=== PATIENT | female | born 1985 | race Caucasian/White ===

== ENCOUNTER 2017-06-11 14:39 | Observation (INO) ==
[2017-06-11] MEDS ORDERED: *HR* OxyCODONE Immed Rel 5 MG TABLET PO PRN (18:11)
[2017-06-11] MEDS ORDERED: Acetaminophen 325 MG TABLET PO PRN (18:11)
[2017-06-11] MEDS ORDERED: Naloxone 0.4 MG/ML INJ IVP PRN (18:11)
[2017-06-11] MEDS ORDERED: *HR* HYDROcodone/Acet 5/325 mg TABLET PO PRN (18:11)
[2017-06-11] MEDS ORDERED: *HR* Promethazine 25 MG/ML VIAL IVP PRN (18:26)
[2017-06-11] MEDS: 0.9 % Sodium Chloride 1,000 ML IVC SCH (19:02)
--- NOTE | 2017-06-11 19:29 | Internal Med History&Physical ---
Date of Encounter: 06/11/17 Time of Encounter: 17:30 Assessment and Plan (1) Abdominal pain Current visit: Yes Status: Acute Acute RUQ pain that began yesterday and worsened today. Pt. reports similar sx in September but did not follow up d/t insurance reasons. NPO status. IVP Phenergan 12.5 mg Q6HR for N/V. IVP Protonix 40 mg BID. Stair-step pain medication for pain mgmt. U/S abdomen limited w/focus on RUQ to assess for gallstones. Should consider CT of the abdomen/pelvis if U/S inconclusive or borderline. 0.9 NS IV fluids @ 75 mL/HR. BG checks Q6HR d/t NPO status. Consider surgical consult if warranted. Pt. discussed w/Dr. Shoemaker who is in agreement w/plan of care. Pt. is at moderate risk for further morbidity d/t current RUQ pain, repeated N/V, and hx of similar sx. Observation. Qualifiers: Abdominal location: right upper quadrant Qualified Code(s): R10.11 - Right upper quadrant pain (2) Nausea and vomiting Current visit: Yes Status: Acute Acute nausea and vomiting that began yesterday and continued today. NPO for now. IVP Phenergan 12.5 Q6HR for N/V. IVP Protonix 40 mg BID. Qualifiers: Vomiting type: cyclical vomiting Vomiting Intractability: non-intractable Qualified Code(s): G43.A0 - Cyclical vomiting, not intractable (3) DVT prophylaxis Current visit: Yes Status: Acute Lovenox 40 mg 06:30 for DVT prophylaxis. Monitor pt. for signs of bleeding. Internal Medicine - H&P: HPI Chief complaint: Abdominal/Epigastric pain Admitted From: Intrahospital Transfer Plans for Post Hospital Care: Home History of present illness: Ms. Paez is a 31 year old female with medical hx of lumpectomy on left breast presents from the [facility] ED with chief complaint of abdominal pain in RUQ region accompanied by nausea, vomiting, diarrhea, and bloating since last night. Pt. reports same sx in September and concern was for gallstones. Pt. unable to follow-up d/t insurance reasons. Patient reports multiple episodes of nausea and vomiting last night and today. Patient reports dizziness but denies recent illness, fever, chills, changes in vision, headache, chest pain, shortness of breath, constipation, numbness, tingling, unusual bleeding, lightheadedness, pre-syncope, or syncope. Past Med Surg Social Fam HX - Past Medical History Source: patient, old records reviewed, obtained from family Medical history: no medical history Psychiatric history: no psych history - Past Surgical History Surgical History: other (Lumpectomy of left breast) - Social History Packs per day: 05/17 PPD - Reports quitting 9 years ago Smokeless Tobacco Status: No Alcohol use: none Drug use: none Current living situation: Home Activity Level: Independent ambulation, Very active Recent Out of Country Travel Within the Last 8 Weeks: No Exposure or Possible Exposure to Illness During Travel: No - Family History Grandmother Race: Family Member Ethnicity: Non- Living Status: Hx Family Cancer: Yes (Pancreatic Cancer) Father Race: Family Member Ethnicity: Non- Living Status: Still Living Hx Family Medical Disorders: No Mother Race: Family Member Ethnicity: Non- Living Status: Still Living Hx Family Genitourinary Disorders: Yes (Kidney stones) Brother Race: Family Member Ethnicity: Non- Living Status: Still Living Hx Family Medical Disorders: No Sister Race: Family Member Ethnicity: Non- Living Status: Still Living Hx Family Medical Disorders: No Internal Medicine - H&P: Meds No Known Home Drugs 06/11/17 [History] 3 Allergy/AdvReac Type Severity Reaction Status Date / Time No Known Allergies Allergy Verified 06/11/17 12:35 All Systems PM: A 10-system review of systems was performed and is negative for pertinent findings except as documented above in the HPI. - Constitutional Constitutional: as per HPI, fatigue, weakness, no chills, no fever(s), no night sweats - EENT Eyes: no change in vision, no discharge, no pain, no photophobia Ears: no ear discharge, no ear pain, no tinnitus Nose, mouth and throat: no dysphagia, no nasal discharge, no neck pain, no sore throat - Breasts Breasts: as per HPI - Cardiovascular Cardiovascular ROS IM: no chest pain, no diaphoresis, no dyspnea, no lightheadedness, no palpitations, no syncope - Respiratory Respiratory: no cough, no dyspnea, no wheezing, no excessive phlegm production - Gastrointestinal Gastrointestinal: as per HPI, abdominal pain, diarrhea, nausea, vomiting, no hematemesis, no hematochezia, no melena - Genitourinary Genitourinary: no change in urinary stream, no dysuria, no flank pain, no hematuria Menstruation: as per HPI - Musculoskeletal Musculoskeletal ROS IM: no numbness, no tingling - Integumentary Integumentary IM: no rash, no unusual bruising - Neurological Neurological ROS: no confusion, no convulsions, no focal weakness, no numbness, no tingling, no tremor(s) - Psychiatric Psychiatric: as per HPI - Endocrine Endocrine IM: as per HPI - Hematologic/Lymphatic Hematologic/Lymphatic: no easy bruising - Allergic/Immunologic Allergic/Immunologic: as per HPI - Constitutional Vitals: Temp Pulse Resp BP Pulse Ox 97.7 F 79 14 122/79 100 06/11/17 16:55 06/11/17 16:55 06/11/17 16:55 06/11/17 16:55 06/11/17 16:55 General appearance: Present: cooperative, A&O X 3, pleasant, severe distress ( Epigastric pain), answers questions appropriately - Head Head exam: Present: atraumatic, normocephalic - Eye Eye exam: Present: PERRL, conjuntiva pink, sclera anicteric Pupils: Present: PERRL - ENT ENT exam: Present: normal exam - Neck Neck exam general surgery: Present: normal inspection, supple, trachea midline. Absent: lymphadenopathy - Respiratory Respiratory exam: Present: CTAB. Absent: accessory muscle use, rales, rhonchi, wheezes - Cardiovascular Cardiovascular exam: Present: RRR, +S1, +S2. Absent: diastolic murmur, gallop, rubs, systolic murmur - GI/Abdominal GI/Abdominal exam: Present: guarding, normal bowel sounds, soft, tenderness, no peritoneal signs. Absent: distended - Rectal Rectal exam: Present: deferred - Additional comments: exam deferred. - Extremities Exam Extremities exam: Present: warm, radial pulses palpable and symmetrical. Absent : calf tenderness, cyanotic, pedal edema - Back Exam Back exam: Present: normal inspection - Neurological Exam Neurological exam: Present: CN II-XII intact, oriented X3, no focal deficits. Absent: pronater drift, facial droop, speech deficit - Psychiatric Psychiatric exam: Present: normal affect, normal mood - Skin Skin exam: Present: dry, intact Internal Med - H&P Results - EKG Data EKG shows normal: sinus rhythm - EKG Data Prior EKG available for review: yes EKG comments: 06/11/17 20:02 EKG dated 06/11/17 18:22 shows sinus rhythm with incomplete right bundle branch block. EKG dated 06/11/17 18:23 shows sinus rhythm with marked sinus arrhythmia and possible right ventricular conduction delay.
--- NOTE | 2017-06-11 21:08 | Event Note ---
Date of Encounter: 06/11/17 Time of Encounter: 18:00 Discussed with FREDA and agree with assessment and plan Patient reports of a two-year history of intermittent right upper quadrant/ epigastric pain mainly after eating fatty foods. On labs, lipase within normal limits as well as LFTs except for direct/total bilirubin which was slightly elevated. Will order right upper quadrant ultrasound and await results for any further medical management.
[2017-06-12 05:41] LABS: Basophils % 0.1 %; Eosinophils % 0.4 %; Hematocrit 32.2 % (35.3-44.9); Hemoglobin 10.4 g/dL (11.5-15.4); Immature Granulocytes % 0.4 % (0-4); Lymphocytes # 1.4 K/mcL (0.6-4.6); Lymphocytes % 16.5 %; Mean Corpuscular HGB Conc 32.3 g/dL (31.6-35.5); Mean Corpuscular Hemoglobin 28.6 pg (28.0-33.3); Mean Corpuscular Volume 88.5 fL (83.0-100.0); Mean Platelet Volume 10.5 fL (9.4-12.4); Monocytes # 0.6 K/mcL (0.0-1.3); Monocytes % 6.8 %; Neutrophils # 6.5 K/mcL (1.6-8.9); Platelet Count 258 K/mcL (140-400); Red Blood Count 3.64 M/mcL (3.82-4.97); Red Cell Distribution Width 13.2 % (11.5-14.5); Segmented Neutrophils % 75.8 %
[2017-06-12] MEDS: Pantoprazole 40 MG VIAL IVP SCH ×2 (05:58→16:44)
[2017-06-12] MEDS: *HR* Enoxaparin 40 MG/0.4 ML SYRINGE SQ SCH (05:58)
[2017-06-12 06:00] LABS: Alanine Aminotransferase 6 Units/L (7-52); Albumin 3.3 g/dL (3.5-5.7); Albumin/Globulin Ratio 1.4 (1.1-2.2); Alkaline Phosphatase 51 Units/L (34-104); Aspartate Amino Transferase 11 Units/L (13-39); BUN/Creatinine Ratio 16 (6-26); Bilirubin,Total 1.6 mg/dL (0.3-1.0); Blood Urea Nitrogen 9 mg/dL (6-20); Calcium 7.7 mg/dL (8.6-10.3); Carbon Dioxide 23 mEq/L (23-29); Chloride 111 mEq/L (98-107); Chol/HDL Ratio 2.5 (0-4.9); Cholesterol 93 mg/dL (< 200); Globulin 2.3 g/dL (2.4-3.5); Glucose 82 mg/dL (70-105); HDL Cholesterol 37 mg/dL (40-59); LDL Cholesterol,Calculated 40 mg/dL (0-99); Magnesium 2.1 mg/dL (1.6-2.6); Osmolality,Calculated 284 (280-300); Potassium 3.3 mEq/L (3.5-5.1); Sodium 138 mEq/L (136-145); Total Protein 5.6 g/dL (6.4-8.9); Triglycerides 78 mg/dL (< 150); eGFR For African Americans > 60 (> 60); eGFR For Non-African Americans > 60 (> 60)
[2017-06-12] MEDS: 0.9 % Sodium Chloride 1,000 ML IVC SCH ×3 (09:11→20:00)
[2017-06-12] MEDS: MetroNIDAZOLE 500 MG/100 ML 500 MG/100 ML BAG IVPB SCH ×3 (14:06→23:03)
--- NOTE | 2017-06-12 14:21 | Internal Med Progress Note ---
Date of Encounter: 06/12/17 Time of Encounter: 13:15 - Assessment and plan (1) Enteritis Current Visit: Yes Status: Acute Assessment and plan: CT abd/pelvis concerning for acute enteritis will start IV cipro and flagyl IV fluids clear liquid diet anti-emetics as needed (2) DVT prophylaxis Current Visit: Yes Status: Acute Assessment and plan: Lovenox SQ (3) Nausea and vomiting Current Visit: Yes Status: Resolved Assessment and plan: resolved at this itme will use anti-emetics as needed Qualifiers: Vomiting type: cyclical vomiting Vomiting Intractability: non-intractable Qualified Code(s): G43.A0 - Cyclical vomiting, not intractable - Subjective Interval history: Patient seen and examined at bedside. Resting in bed and reports of improvement of her abd pain compared to previous day. Right Abd US negative for any cholelithiasis CT abd/pelvis concerning for enteritis. - Constitutional Vitals: Temp Pulse Resp BP Pulse Ox 98.5 F 73 18 100/63 99 06/12/17 12:23 06/12/17 12:23 06/12/17 12:23 06/12/17 12:23 06/12/17 12:23 General appearance: Present: cooperative, A&O X 3, pleasant, no acute distress, answers questions appropriately - Head Head exam: Present: atraumatic, normocephalic - Eye Eye exam: Present: conjuntiva pink, sclera anicteric - Respiratory Respiratory exam: Present: CTAB. Absent: accessory muscle use, rales, rhonchi, wheezes - Cardiovascular Cardiovascular exam: Present: RRR, +S1, +S2. Absent: diastolic murmur, gallop, rubs, systolic murmur - GI/Abdominal GI/Abdominal exam: Present: normal bowel sounds, soft, no peritoneal signs. Absent: distended, tenderness - Extremities Exam Extremities exam: Present: warm, radial pulses palpable and symmetrical. Absent : calf tenderness, cyanotic, pedal edema - Neurological Exam Neurological exam: Present: alert, oriented X3 - Psychiatric Psychiatric exam: Present: normal affect, normal mood Internal Medicine: Result - Labs CBC & Chem 7: 06/12/17 04:56 06/12/17 04:56 Labs: Short CBC 06/12/17 Range/Units 04:56 WBC 8.6 (4.3-11.1) K/mcL Hgb 10.4 L D (11.5-15.4) g/dL Hct 32.2 L (35.3-44.9) % Plt Count 258 (140-400) K/mcL Neutrophils # 6.5 (1.6-8.9) K/mcL BMP 06/12/17 04:56 Sodium 138 Potassium 3.3 L Chloride 111 H Carbon Dioxide 23 BUN 9 Creatinine 0.57 L Glucose 82 Calcium 7.7 L Liver Function 06/12/17 Range/Units 04:56 Total Bilirubin 1.6 H (0.3-1.0) mg/dL AST 11 L (13-39) Units/L ALT 6 L (7-52) Units/L Alkaline Phosphatase 51 (34-104) Units/L Albumin 3.3 L (3.5-5.7) g/dL - Impressions Impressions Abdomen Ultrasound 06/11/17 18:22 IMPRESSION: Trace perihepatic ascites, nonspecific. Unremarkable appearance of the gallbladder with no evidence of cholelithiasis. D/ / Franky Burns MD / Franky Burns MD Interpreting Provider: Franky Burns MD Abdomen CT 06/12/17 08:53 IMPRESSION: 1. Inflammatory changes involving multiple fluid-filled thick-walled loops of distal jejunum and proximal ileum in the lower abdomen extending into the pelvis. The pelvis was not imaged on this abdominal CT. Findings likely represent an acute enteritis. 2. Small amount of nonspecific perihepatic ascites is likely related to the bowel inflammatory process. 3. No CT changes of acute cholecystitis. No acute abnormality in the solid organs. D/ / 06/12/2017 10:01:11 Roel Vidales MD / bcarter Interpreting Provider: Roel Vidales MD Consult Discharge Plan - Plan Referrals: NONE,PCP [Primary Care Provider] -
[2017-06-13] MEDS: 0.9 % Sodium Chloride 1,000 ML IVC SCH (04:56)
[2017-06-13] MEDS: Pantoprazole 40 MG VIAL IVP SCH ×2 (04:59→17:08)
[2017-06-13] MEDS: *HR* Enoxaparin 40 MG/0.4 ML SYRINGE SQ SCH (05:01)
[2017-06-13 06:14] LABS: Basophils % 0.2 %; Eosinophils % 0.7 %; Immature Granulocytes % 0.2 % (0-4); Lymphocytes # 1.3 K/mcL (0.6-4.6); Lymphocytes % 31.6 %; Mean Corpuscular HGB Conc 32.3 g/dL (31.6-35.5); Mean Corpuscular Hemoglobin 28.3 pg (28.0-33.3); Mean Corpuscular Volume 87.8 fL (83.0-100.0); Mean Platelet Volume 10.5 fL (9.4-12.4); Monocytes # 0.4 K/mcL (0.0-1.3); Monocytes % 8.7 %; Neutrophils # 2.4 K/mcL (1.6-8.9); Platelet Count 185 K/mcL (140-400); Red Blood Count 3.53 M/mcL (3.82-4.97); Red Cell Distribution Width 13.2 % (11.5-14.5); Segmented Neutrophils % 58.6 %
[2017-06-13 06:34] LABS: Alanine Aminotransferase 6 Units/L (7-52); Albumin 3.2 g/dL (3.5-5.7); Albumin/Globulin Ratio 1.4 (1.1-2.2); Alkaline Phosphatase 45 Units/L (34-104); Aspartate Amino Transferase 9 Units/L (13-39); BUN/Creatinine Ratio 12 (6-26); Bilirubin,Total 0.9 mg/dL (0.3-1.0); Blood Urea Nitrogen 6 mg/dL (6-20); Calcium 7.7 mg/dL (8.6-10.3); Carbon Dioxide 23 mEq/L (23-29); Chloride 110 mEq/L (98-107); Globulin 2.3 g/dL (2.4-3.5); Glucose 87 mg/dL (70-105); Osmolality,Calculated 283 (280-300); Phosphorous 2.1 mg/dL (2.7-4.5); Potassium 3.4 mEq/L (3.5-5.1); Sodium 138 mEq/L (136-145); Total Protein 5.5 g/dL (6.4-8.9); eGFR For African Americans > 60 (> 60); eGFR For Non-African Americans > 60 (> 60)
[2017-06-13] MEDS: MetroNIDAZOLE 500 MG/100 ML 500 MG/100 ML BAG IVPB SCH ×2 (08:08→15:08)
[2017-06-13] MEDS ORDERED: 0.9 % Sodium Chloride 1,000 ML IVC SCH (11:55)
--- NOTE | 2017-06-13 11:56 | Internal Med Progress Note ---
Date of Encounter: 06/13/17 Time of Encounter: 10:16 - Assessment and plan (1) Enteritis Current Visit: Yes Status: Acute Assessment and plan: CT abd/pelvis concerning for acute enteritis will start IV cipro and flagyl IV fluids clear liquid diet, advance as tolerated anti-emetics as needed (2) DVT prophylaxis Current Visit: Yes Status: Acute Assessment and plan: Lovenox SQ (3) Nausea and vomiting Current Visit: Yes Status: Resolved Assessment and plan: resolved at this itme will use anti-emetics as needed Qualifiers: Vomiting type: cyclical vomiting Vomiting Intractability: non-intractable Qualified Code(s): G43.A0 - Cyclical vomiting, not intractable - Subjective Interval history: Patient seen and examined at bedside. Resting in bed and reports of resolution of abd pain. improvement in diarrhea, had a formed bowel movement this morning. tolerating clear liquid diet well. CT abd/pelvis concerning for enteritis. - Constitutional Vitals: Temp Pulse Resp BP Pulse Ox 97.8 F 57 15 109/69 98 06/13/17 06:36 06/13/17 06:36 06/13/17 06:36 06/13/17 06:36 06/13/17 06:36 General appearance: Present: cooperative, A&O X 3, pleasant, no acute distress, answers questions appropriately - Head Head exam: Present: atraumatic, normocephalic - Respiratory Respiratory exam: Present: CTAB. Absent: accessory muscle use, rales, rhonchi, wheezes - Cardiovascular Cardiovascular exam: Present: RRR, +S1, +S2. Absent: diastolic murmur, gallop, rubs, systolic murmur - GI/Abdominal GI/Abdominal exam: Present: normal bowel sounds, soft, no peritoneal signs. Absent: distended, tenderness - Extremities Exam Extremities exam: Present: warm, radial pulses palpable and symmetrical. Absent : calf tenderness, pedal edema - Neurological Exam Neurological exam: Present: alert, oriented X3 - Psychiatric Psychiatric exam: Present: normal affect, normal mood Internal Medicine: Result - Labs CBC & Chem 7: 06/13/17 05:58 06/13/17 05:58 Labs: Short CBC 06/13/17 Range/Units 05:58 WBC 4.1 L D (4.3-11.1) K/mcL Hgb 10.0 L (11.5-15.4) g/dL Hct 31.0 L (35.3-44.9) % Plt Count 185 (140-400) K/mcL Neutrophils # 2.4 (1.6-8.9) K/mcL BMP 06/13/17 05:58 Sodium 138 Potassium 3.4 L Chloride 110 H Carbon Dioxide 23 BUN 6 Creatinine 0.52 L Glucose 87 Calcium 7.7 L Liver Function 06/13/17 Range/Units 05:58 Total Bilirubin 0.9 (0.3-1.0) mg/dL AST 9 L (13-39) Units/L ALT 6 L (7-52) Units/L Alkaline Phosphatase 45 (34-104) Units/L Albumin 3.2 L (3.5-5.7) g/dL Consult Discharge Plan - Plan Referrals: NONE,PCP [Primary Care Provider] -
[2017-06-14] MEDS: MetroNIDAZOLE 500 MG/100 ML 500 MG/100 ML BAG IVPB SCH (00:18)
[2017-06-14] MEDS: 0.9 % Sodium Chloride 1,000 ML IVC SCH (01:32)
[2017-06-14] MEDS: Pantoprazole 40 MG VIAL IVP SCH (04:54)
[2017-06-14] MEDS: *HR* Enoxaparin 40 MG/0.4 ML SYRINGE SQ SCH (05:04)
[2017-06-14 06:04] LABS: Basophils % 0.2 %; Eosinophils # 0.1 K/mcL (0.0-0.6); Hematocrit 33.1 % (35.3-44.9); Hemoglobin 10.8 g/dL (11.5-15.4); Immature Granulocytes % 0.4 % (0-4); Lymphocytes # 1.2 K/mcL (0.6-4.6); Lymphocytes % 23.6 %; Mean Corpuscular HGB Conc 32.6 g/dL (31.6-35.5); Mean Corpuscular Hemoglobin 28.3 pg (28.0-33.3); Mean Corpuscular Volume 86.6 fL (83.0-100.0); Mean Platelet Volume 10.7 fL (9.4-12.4); Monocytes # 0.4 K/mcL (0.0-1.3); Monocytes % 7.5 %; Neutrophils # 3.3 K/mcL (1.6-8.9); Platelet Count 242 K/mcL (140-400); Red Blood Count 3.82 M/mcL (3.82-4.97); Red Cell Distribution Width 13.1 % (11.5-14.5); Segmented Neutrophils % 67.3 %
[2017-06-14 06:47] LABS: Alanine Aminotransferase 8 Units/L (7-52); Albumin 3.8 g/dL (3.5-5.7); Albumin/Globulin Ratio 1.5 (1.1-2.2); Alkaline Phosphatase 52 Units/L (34-104); Aspartate Amino Transferase 13 Units/L (13-39); BUN/Creatinine Ratio 10 (6-26); Bilirubin,Total 0.8 mg/dL (0.3-1.0); Blood Urea Nitrogen 7 mg/dL (6-20); Calcium 8.5 mg/dL (8.6-10.3); Carbon Dioxide 26 mEq/L (23-29); Chloride 106 mEq/L (98-107); Globulin 2.5 g/dL (2.4-3.5); Glucose 107 mg/dL (70-105); Osmolality,Calculated 284 (280-300); Potassium 3.1 mEq/L (3.5-5.1); Sodium 138 mEq/L (136-145); Total Protein 6.3 g/dL (6.4-8.9); eGFR For African Americans > 60 (> 60); eGFR For Non-African Americans > 60 (> 60)
[2017-06-14 06:49] LABS: Phosphorous 3.3 mg/dL (2.7-4.5)
[2017-06-14] MEDS ORDERED: metroNIDAZOLE 500 MG TABLET PO SCH (09:00)
[2017-06-14 10:48] VITALS: BP 96/59
--- NOTE | 2017-06-14 13:43 | Discharge Summary ---
Date of Encounter: 06/14/17 Time of Encounter: 13:15 - Discharge Diagnosis (1) Enteritis Priority: Primary Status: Acute (2) DVT prophylaxis Priority: Secondary Status: Acute (3) Nausea and vomiting Priority: Primary Status: Resolved Qualifiers: Vomiting type: cyclical vomiting Vomiting Intractability: non-intractable Qualified Code(s): G43.A0 - Cyclical vomiting, not intractable - Discharge Medications Prescriptions: Ciprofloxacin [Cipro] 500 mg PO BID #9 tablet Lactobacillus Acidophilus [Acidophilus Lactobacilli] 1 each PO BID #9 capsule metroNIDAZOLE [Flagyl] 500 mg PO TID #14 tablet Home Medications: Ciprofloxacin [Cipro] 500 mg PO BID #9 tablet 06/14/17 [Rx] Lactobacillus Acidophilus [Acidophilus Lactobacilli] 1 each PO BID #9 capsule [Rx] metroNIDAZOLE [Flagyl] 500 mg PO TID #14 tablet 06/14/17 [Rx] Allergies/Adverse Reactions: 3 Allergy/AdvReac Type Severity Reaction Status Date / Time No Known Allergies Allergy Verified 06/11/17 12:35 Procedures/tests Complete & Pending: Procedures Performed prior 72 hours Category Date Time Status CT abdomen w iv no oral [CT] Stat Cat Scan 06/12/17 08:53 Draft US abdomen limited [US] Stat Exams 06/11/17 18:22 Completed EKG [ECG 12 lead ECG] [ECG] Stat Y 06/11/17 18:25 Completed Date of admission: 06/11/17 16:39 Primary care physician: PCP NONE Consults: 06/11/17 18:13 Consult to Heating And Cooling Technician [CONS] Routine Reason for SW Consult: Patient had similar sx in September and could not follow up d/t insurance reasons. Please assess patient for needs for post-discharge planning Discharging clinician: Tara Cunha Anticipated date of discharge: 06/14/17 - Patient Status Disposition: Home, Self-Care Condition: Good Functional capacity at discharge: independent ambulation Overall status at discharge: patient is back to baseline - Discharge Instructions Follow Up With: Roshan Tanner CNP [Non-Partnered Physician] - 06/22/17 3:00 pm (You will receive a new packet in the mail. If you do not, please arrive to your appt. 1/ 2 hour early to fill it out in the office. Please bring your photo ID, insurance card and any medications you are on. If you need to cancel, please give a 24 hour notice. Thank you) Additional Instructions: Please follow up with your primary care physician within one week after your discharge from the hospital. Please continue oral antibiotics as prescribed along with the probiotic - Diet and Activity Activity: resume usual activities as tolerated Diet: advance to your usual diet Hospital course: Ms. Paez is a 31 year old female with no medical history admitted for abdominal pain, nausea, vomiting secondary to enteritis. She was started on empiric abx, IV Fluids, and was initially made NPO. Her diet was slowly started with clear liquid diet and advanced as tolerated. She responded well to therapy with complete resolution of her abd pain. She is medically stable at this time and tolerating regular diet well. She will be discharged to home with follow up with PCP. - Time Spent with Patient Total time spent providing and/or coordinating discharge services: Less than 30 minutes - Constitutional Vitals: Temp Pulse Resp BP Pulse Ox 98.1 F 68 18 96/59 98 06/14/17 10:45 06/14/17 10:45 06/14/17 10:45 06/14/17 10:45 06/14/17 10:45 General appearance: Present: cooperative, A&O X 3, pleasant, no acute distress, answers questions appropriately - Head Head exam: Present: atraumatic, normocephalic - Eye Eye exam: Present: normal appearance, conjuntiva pink, sclera anicteric - Respiratory Respiratory exam: Present: CTAB. Absent: accessory muscle use, rales, rhonchi, wheezes - Cardiovascular Cardiovascular exam: Present: RRR, +S1, +S2. Absent: diastolic murmur, gallop, rubs, systolic murmur - GI/Abdominal GI/Abdominal exam: Present: normal bowel sounds, soft, no peritoneal signs. Absent: distended, tenderness - Extremities Exam Extremities exam: Present: warm, radial pulses palpable and symmetrical. Absent : calf tenderness, pedal edema - Neurological Exam Neurological exam: Present: alert, oriented X3 - Psychiatric Psychiatric exam: Present: normal affect, normal mood
--- NOTE | 2017-06-15 18:32 | Electrocardiograph Report ---
[place] [id number] Test Date: 2017-06-11 Pat Name: Kimberly Paez Department: 115 Room: 3A41 Gender: F Hog Ringer: YUNG : 1985 Requested By: Uriah Sanon Order Number: [id number] Reading MD: Abelardo Almanza MD Measurements Intervals [place] Rate: 62 P: 50 WY: 149 QRS: 67 QRSD: 97 T: 66 QT: 426 QTc: 432 Interpretive Statements SINUS RHYTHM WITH MARKED SINUS ARRHYTHMIA Electronically Signed On 06-15-2017 18:30:12 EST by Abelardo Almanza MD
== END 2017-06-14 14:42 | disposition home or self-care (01) ==
LOC: 3ANU → SUATTDRO 16:39
PROVIDERS: ADMIT Hospitalist; ATTEND Internal Medicine

== ENCOUNTER 2017-09-04 22:55 | Inpatient (IN) ==
[2017-09-05] MEDS ORDERED: Ondansetron 4 MG/2 ML VIAL IVP PRN (01:44)
[2017-09-05] MEDS ORDERED: *HR* OxyCODONE/APAP 10/325 TABLET PO PRN ×2 (01:45→15:03)
[2017-09-05] MEDS: 0.9 % Sodium Chloride 1,000 ML IVC SCH ×2 (02:05→16:48)
[2017-09-05 06:34] LABS: Basophils % 0.3 %; Eosinophils % 0.1 %; Hemoglobin 11.8 g/dL (11.5-15.4); Immature Granulocytes % 0.5 % (0-4); Lymphocytes # 1.3 K/mcL (0.6-4.6); Lymphocytes % 12.7 %; Mean Corpuscular HGB Conc 33.7 g/dL (31.6-35.5); Mean Corpuscular Hemoglobin 29.1 pg (28.0-33.3); Mean Corpuscular Volume 86.2 fL (83.0-100.0); Mean Platelet Volume 11.2 fL (9.4-12.4); Monocytes # 0.7 K/mcL (0.0-1.3); Monocytes % 6.5 %; Neutrophils # 8.2 K/mcL (1.6-8.9); Platelet Count 255 K/mcL (140-400); Red Blood Count 4.06 M/mcL (3.82-4.97); Red Cell Distribution Width 13.2 % (11.5-14.5); Segmented Neutrophils % 79.9 %
[2017-09-05 06:43] LABS: BUN/Creatinine Ratio 24 (6-26); Blood Urea Nitrogen 14 mg/dL (6-20); Calcium 8.4 mg/dL (8.6-10.3); Carbon Dioxide 22 mEq/L (23-29); Chloride 111 mEq/L (98-107); Glucose 101 mg/dL (70-105); Osmolality,Calculated 295 (280-300); Sodium 142 mEq/L (136-145); eGFR For African Americans > 60 (> 60); eGFR For Non-African Americans > 60 (> 60)
--- NOTE | 2017-09-05 08:29 | General Surg History&Physical ---
Date of Encounter: 09/05/17 Time of Encounter: 08:10 History of Present Illness Chief complaint: Nausea and vomiting HPI: Ms. Paez is a 31 year old female Who has been symptomatic for almost a year. She has intermittent crampy abdominal pain associated with nausea and vomiting. She was admitted to the hospital one occasion to rule out gastroenteritis. She has upper and lower endoscopy planned for . She presented today to the emergency room with nausea and vomiting and crampy abdominal pain. CAT scan demonstrates distal small bowel obstruction. This is likely a high-grade partial bowel obstruction with dilated proximal small bowel at about a 4-1 ratio to distal small bowel. This is in the distal ileum and likely represents adhesive band or Meckel's diverticulum. I have recommended laparotomy with possible small bowel obstruction. The patient is in complete agreement and wishes to proceed later today. Past Med Surg Social Fam HX - Past Medical History Medical history: other Psychiatric history: no psych history - Past Surgical History Surgical History: other (Lumpectomy of left breast) - Social History Smoking Status: Never smoker Smokeless Tobacco Status: No Alcohol use: none Drug use: none - Family History Grandmother History Unknown: Yes Adopted: No Family Member Ethnicity: Non- Living Status: Hx Family Cancer: Yes (pancreatic) Father Family Member Ethnicity: Non- Living Status: Still Living Mother Family Member Ethnicity: Non- Living Status: Still Living Brother Family Member Ethnicity: Non- Living Status: Still Living Sister Family Member Ethnicity: Non- Living Status: Still Living Medications and Allergies No Known Home Drugs 09/05/17 [History] 3 Allergy/AdvReac Type Severity Reaction Status Date / Time No Known Allergies Allergy Verified 09/04/17 20:35 Review of Systems All systems PM: The remainder of the systems were reviewed and are negative General Surgery Exam Initial Vital Signs Temp Pulse Resp BP Pulse Ox 98.3 F 83 16 97/58 100 09/05/17 00:52 09/05/17 00:52 09/05/17 00:52 09/05/17 00:52 09/05/17 00:52 - General physical appearance well developed, well nourished, no distress - ENT normal pinna, normal nares, normal mucosa, no hearing loss, no congestion - Neck no masses, no bruits, trachea midline, no lymphadectomy, no venous distension - Respiratory normal expansion, normal respiratory effort, clear to percussion, clear to auscultation - Cardiovascular Cardiovascular exam: Present: RRR, no murmurs/rubs/gallops - Abdomen Abdomen general surgery: Present: bowel sounds present, tender Abdominal Tenderness: Present: diffusely (No guarding or rebound. Bowel sounds are hypoactive) - Integumentary Integumentary general surgery: Present: warm and dry, no abnormal pigmentation - Neurologic Present: CN 2-12 grossly intact, normal coordination, normal sensation - Psychiatric Psychiatric general surgery: Present: appropriate, oriented to person, oriented to place, oriented to time, speech is normal, memory intact Results - Labs 09/05/17 05:51 09/05/17 05:51 Abnormal lab results Hct 35.0 % (35.3-44.9) L 09/05/17 05:51 Chloride 111 mEq/L (98-107) H 09/05/17 05:51 Carbon Dioxide 22 mEq/L (23-29) L 09/05/17 05:51 Creatinine 0.59 mg/dL (0.60-1.20) L 09/05/17 05:51 Calcium 8.4 mg/dL (8.6-10.3) L 09/05/17 05:51 Diabetes panel 09/05/17 Range/Units 05:51 Sodium 142 (136-145) mEq/L Potassium 4.0 D (3.5-5.1) mEq/L Chloride 111 H (98-107) mEq/L Carbon Dioxide 22 L (23-29) mEq/L BUN 14 (6-20) mg/dL Creatinine 0.59 L (0.60-1.20) mg/dL Glucose 101 (70-105) mg/dL Calcium 8.4 L (8.6-10.3) mg/dL Calcium panel 09/05/17 Range/Units 05:51 Calcium 8.4 L (8.6-10.3) mg/dL Pituitary panel 09/05/17 Range/Units 05:51 Sodium 142 (136-145) mEq/L Potassium 4.0 D (3.5-5.1) mEq/L Chloride 111 H (98-107) mEq/L Carbon Dioxide 22 L (23-29) mEq/L BUN 14 (6-20) mg/dL Creatinine 0.59 L (0.60-1.20) mg/dL Glucose 101 (70-105) mg/dL Calcium 8.4 L (8.6-10.3) mg/dL Adrenal panel 09/05/17 Range/Units 05:51 Sodium 142 (136-145) mEq/L Potassium 4.0 D (3.5-5.1) mEq/L Chloride 111 H (98-107) mEq/L Carbon Dioxide 22 L (23-29) mEq/L BUN 14 (6-20) mg/dL Creatinine 0.59 L (0.60-1.20) mg/dL Glucose 101 (70-105) mg/dL Calcium 8.4 L (8.6-10.3) mg/dL All other labs normal.
[2017-09-05] MEDS ORDERED: *HR* Propofol 200 MG/20 ML VIAL IVP ONE (11:04)
[2017-09-05] MEDS ORDERED: Lidocaine -MPF 2% 2 ML VIAL ONE (11:04)
[2017-09-05] MEDS ORDERED: *HR* Midazolam HCl 2 MG/2 ML VIAL ONE (11:04)
[2017-09-05] MEDS ORDERED: *HR* Rocuronium Bromide 50 MG/5 ML VIAL ONE (11:04)
[2017-09-05] MEDS ORDERED: *HR* FentaNYL (PF) 100 MCG/2 ML VIAL ONE ×2 (11:04→12:26)
--- NOTE | 2017-09-05 11:12 | Anesthesia Evaluation PreOp ---
Date of Encounter: 09/05/17 Time of Encounter: 11:10 - Past History Planned Operation: Exploratory Laparotomy Cardiac History: Denies any Significant Hx Pulmonary History: Denies Any Significant HX SEPTIC PUMP TRUCK DRIVER History: Denies Any Significant HX Other Medical History: Denies Any Significant HX Anesthesia History: No Prior Anesthetic Complications, Past Anesthesia Test: Negative (09/05/2017) Alcohol Use: none Drug use: none Medications and Allergies No Known Home Drugs 09/05/17 [History] 3 Allergy/AdvReac Type Severity Reaction Status Date / Time No Known Allergies Allergy Verified 09/04/17 20:35 - Meds/Allergy Pre-op Review Medications Reviewed: Yes Allergies Reviewed: Yes Beta Blockers on Current Med List: No Anesthesia Results - Labs 09/05/17 05:51 09/05/17 05:51 - Imaging EKG: report reviewed (06/11/2017 SINUS RHYTHM WITH MARKED SINUS ARRHYTHMIA) Anesthesia Exam Vital Signs/O2 Sat, Most Current Temp Pulse Resp BP Pulse Ox 98.2 F 57 13 97/60 98 09/05/17 07:08 09/05/17 07:08 09/05/17 07:08 09/05/17 07:08 09/05/17 08:15 Height: 5'4''/1.63m Weight: 147 lbs/62.4 kg NPO (# of Hours): 8 Pain Scale: 0 Pain Scale Used: Numeric (1 - 10) - HEENT Pupil (Motor): EOMI Mallampati: II Teeth: Normal Oral Opening: Greater than 3 - SEPTIC PUMP TRUCK DRIVER LOC: Oriented SEPTIC PUMP TRUCK DRIVER Motor: Normal RUE, Normal LUE, Normal RLE, Normal LLE, Normal Face SEPTIC PUMP TRUCK DRIVER Sensory: Normal: RUE, LUE, RLE, LLE, Face - Cardiac Rhythm: Regular Murmur: None - Pulmonary Breath Sounds: bilateral Clear Respiratory Effort: Symmetrical Anesthesia Assess/Plan ASA Score: 1 Modified Geneva Scale for Level of Consciousness: Cooperative, oriented, and tranquil Anesthetic Plan: General Monitoring Plan: Standard Monitors Recovery Plan: PACU
[2017-09-05] MEDS ORDERED: *HR* OxyCODONE Immed Rel 5 MG TABLET PO PRN (11:20)
[2017-09-05] MEDS ORDERED: *HR* Promethazine 25 MG/ML VIAL IVP PRN (11:20)
[2017-09-05] MEDS ORDERED: Acetaminophen IV 1,000 MG/100 ML INFUS..BTL ONE (11:25)
[2017-09-05] MEDS ORDERED: CefOXitin 2,000 MG VIAL ONE (11:26)
[2017-09-05] MEDS ORDERED: *HR* Succinylcholine 200 MG/10 ML VIAL IVP ONE (11:54)
[2017-09-05] MEDS ORDERED: Lidocaine -MPF 4% 5 ML AMPUL ONE (11:55)
[2017-09-05] MEDS ORDERED: Ondansetron 4 MG/2 ML VIAL ONE (12:18)
[2017-09-05] MEDS ORDERED: Dexamethasone 4 MG/ML VIAL ONE (12:18)
[2017-09-05] MEDS ORDERED: Ketorolac 30 MG/ML VIAL ONE (13:35)
[2017-09-05] MEDS ORDERED: Neostigmine Methylsulfate 3 MG/3 ML SYRINGE ONE (13:37)
[2017-09-05] MEDS ORDERED: *HR* HYDROmorphone 20 MG/20 ML PCA IVC PRN (13:49)
--- NOTE | 2017-09-05 13:54 | Operative Note ---
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 Timeout was taken and the patient was identified. The abdomen was prepped and draped in sterile fashion utilizing ChloraPrep standard draping techniques. I made a vertical midline incision below the umbilicus and the abdomen. It was immediately apparent that there was no inflammatory process involving the small bowel about 25-30 cm proximal to the ileocecal valve. The inflammatory process involved the pelvis and sigmoid colon. I enlarged the midline incision and placed a Bookwalter retractor. The patient had a right ovarian cyst that was retracted out of the way and during retraction the cyst ruptured. I did not take any further action with the cyst. The inflammatory adhesions were combination of acute and chronic adhesions densely adherent to the sacral promontory and sigmoid colon. As I dissected through this area it became obvious that the small bowel and colon were fused. As I took down this adhesion the opening in the sigmoid colon was perhaps 3 cm circular. The small bowel was no longer continuous about 20 cm proximal to the ileocecal valve. 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 There is no pus in this area the colon was unprepped, however, the field was clean. I decided to do a sigmoid colectomy with primary anastomosis as well as ileocecectomy area I divided the small bowel proximal to the area of maximum inflammation and disruption of the small bowel I divided the right colon just above the cecum. I divided the mesentery with clamps and hemostatic ligatures. I then turned my attention to the sigmoid colon resection. The sigmoid colon was completely mobilized as was the rectum. The fistula had occurred at the level of the pelvic brim at the junction between the sigmoid colon and the rectum. I mobilize the rectum distally area I placed a right angle bowel clamp on the rectum and divided the rectum about 3-4 cm distal to the fistula. I divided the mid sigmoid colon using a bowel clamp above this area. I divided the mesentery of the distal sigmoid colon and proximal rectum and the specimen was removed. I performed a 2 layer handsewn anastomosis with 2-0 silk seromuscular stitches and running 3-0 catgut mucosal stitch. This gave an excellent technical result that was watertight and airtight. I then turned my attention to the small bowel and cecum. I performed a functional end-to-end anastomosis with VICENTA stapler and closed the resulting enterotomy with a TA 60. I circumferentially reinforced the anastomosis with interrupted silk stitches. The mesentery was closed with interrupted silk stitches. She tolerated the procedure very well. The differential diagnosis includes endometriosis, Crohn' s disease, or ruptured Meckel's diverticulum. There is no evidence of sigmoid diverticulosis. The abdomen was irrigated with copious amounts of Mefoxin containing solution. Midline was closed with looped 0 PDS in the skin was closed with interrupted 2-0 Vicryl and skin clips. Nasogastric tube was placed prior to closure and placement in the stomach was confirmed.
[2017-09-05] MEDS: *HR* FentaNYL (PF) 100 MCG/2 ML VIAL IVP PRN ×2 (14:18→14:32)
[2017-09-05] MEDS: *HR* HYDROmorphone 20 MG/20 ML PCA IVC PRN (15:12)
--- NOTE | 2017-09-05 16:40 | Anesthesia Evaluation Post Op ---
Date of Encounter: 09/05/17 Time of Encounter: 16:39 - Vital Signs Vital Signs: Vital Signs/O2 Sat, Most Current Temp Pulse Resp BP Pulse Ox 97.2 F L 105 20 119/80 100 09/05/17 14:41 09/05/17 14:51 09/05/17 14:51 09/05/17 14:51 09/05/17 15:30 - Lungs Lungs: Clear Ascult./Percussion - Airway Airway: Non-obstructed - Cardiovascular Regular Rate - Mental Status Mental Status: Asleep with brisk response to light stimulation - Nausea Vomiting Nausea Vomiting: Not Present - Hydration Hydration: NPO, Has not voided
[2017-09-05] MEDS: *HR* Heparin 5,000 UNIT/ML VIAL SQ SCH (16:42)
[2017-09-05] MEDS: cefOXitin 2,000 MG in Water for inj. (sterile) 20 ML 10 ML IVP SCH (16:48)
[2017-09-05] MEDS ORDERED: *HR* Heparin 5,000 UNIT/ML VIAL SQ SCH (18:00)
[2017-09-05] MEDS: Ondansetron 4 MG/2 ML VIAL IVP PRN ×2 (18:51→22:01)
[2017-09-06] MEDS: cefOXitin 2,000 MG in Water for inj. (sterile) 20 ML 10 ML IVP SCH ×3 (00:36→15:34)
[2017-09-06] MEDS: Ondansetron 4 MG/2 ML VIAL IVP PRN ×4 (02:42→15:35)
[2017-09-06] MEDS: 0.9 % Sodium Chloride 1,000 ML IVC SCH ×2 (03:21→13:12)
[2017-09-06 05:24] LABS: Basophils % 0.1 %; Hematocrit 36.4 % (35.3-44.9); Hemoglobin 11.8 g/dL (11.5-15.4); Immature Granulocytes % 0.4 % (0-4); Lymphocytes # 0.4 K/mcL (0.6-4.6); Lymphocytes % 2.4 %; Mean Corpuscular HGB Conc 32.4 g/dL (31.6-35.5); Mean Corpuscular Hemoglobin 29.4 pg (28.0-33.3); Mean Corpuscular Volume 90.5 fL (83.0-100.0); Mean Platelet Volume 10.3 fL (9.4-12.4); Neutrophils # 14.7 K/mcL (1.6-8.9); Platelet Count 279 K/mcL (140-400); Red Blood Count 4.02 M/mcL (3.82-4.97); Red Cell Distribution Width 13.5 % (11.5-14.5); Segmented Neutrophils % 91.1 %
[2017-09-06 05:47] LABS: BUN/Creatinine Ratio 18 (6-26); Blood Urea Nitrogen 10 mg/dL (6-20); Calcium 7.7 mg/dL (8.6-10.3); Carbon Dioxide 25 mEq/L (23-29); Chloride 108 mEq/L (98-107); Glucose 118 mg/dL (70-105); Osmolality,Calculated 286 (280-300); Potassium 3.6 mEq/L (3.5-5.1); Sodium 138 mEq/L (136-145); eGFR For African Americans > 60 (> 60); eGFR For Non-African Americans > 60 (> 60)
[2017-09-06] MEDS: *HR* Heparin 5,000 UNIT/ML VIAL SQ SCH ×2 (06:14→17:29)
[2017-09-06] MEDS: Pantoprazole 40 MG VIAL IVP SCH (07:18)
--- NOTE | 2017-09-06 09:22 | General Surgery Progress Note ---
<Farhat Remy - Last Filed: 09/06/17 09:33> Date of Encounter: 09/06/17 Time of Encounter: 07:30 - Assessment and Plan (1) Small bowel obstruction Current Visit: No Status: Acute POD#1 sigmoid colectomy/ileocecetomy with Dr. Morales (09/05/17) Pre-op presence of small bowel to colon fistula corrected; patient remains afebrile. Leukocytosis post-op 16.1 (10.0), will continue to monitor NPO, awaiting return of bowel function, IV fluids, continuing NG tube, incentive spirometry at bedside q1h, pain control with EMPLOYMENT TRAINING SPECIALIST. Ambulate with assist TID Subjective Narrative: Ms. Paez is POD#1 sigmoid colectomy/ileocecectomy--her pain is controlled, she is seen holding her EMPLOYMENT TRAINING SPECIALIST pump (knows how to use), she denies fevers, nausea, vomiting, she is able to void, has no dysuria, continues to be NPO. Objective Vital Signs - Last 8 Hours Temp Pulse Resp BP Pulse Ox 09/06/17 08:10 96 09/06/17 07:09 98.7 F 97 16 100/66 96 09/06/17 06:40 100 09/06/17 03:13 98.9 F 99 14 114/71 100 Intake and Output 09/05/17 09/06/17 09/06/17 23:59 07:59 15:59 Intake Total 2440 / 2440 0 / 0 Output Total 0 / 0 500 / 500 Balance 1940 / 1940 0 / 0 Intake: IV Fluids 2440 / 2440 0.9 % Sodium Chloride 1,000 ML 1420 / 1420 @ 100 mls/hr IVC .Q10H [facility] Rx#: [id number] Mefoxin 2,000 MG In Water for 20 / 20 inj. (sterile) 10 ML @ 150 mls/ hr IVP Q8HR [facility] Rx#:[id number] Oral 0 / 0 0 / 0 0 / 0 Output: Urine 0 / 0 350 / 350 Gastric Drainage 150 / 150 Other: Meal NPO NPO npo Percent of Meal Consumed 0% 0% # Voids 0 # Bowel Movements 0 0 Weight 63.9 kg Blood Glucose* 119 91 Patient Weight 09/06/17 23:59 Weight 63.9 kg - General physical appearance well developed, well nourished, no distress - Eyes normal ocular movement - ENT normal mucosa - Neck Neck exam: no lymphadectomy - Respiratory normal expansion, normal respiratory effort, clear to auscultation - Cardiovascular Cardiovascular exam: Present: RRR, no murmurs/rubs/gallops. Absent: JVD - Abdomen Abdomen: Present: soft. Absent: bowel sounds present (POD#1), guarding, rigid - Incision Incision: Present: clean and dry, intact - Integumentary no abnormal pigmentation - Neurologic normal coordination, normal sensation - Psychiatric speech is normal, memory intact - Labs 09/06/17 04:37 09/06/17 04:37 Diabetes panel 09/06/17 Range/Units 04:37 Sodium 138 (136-145) mEq/L Potassium 3.6 (3.5-5.1) mEq/L Chloride 108 H (98-107) mEq/L Carbon Dioxide 25 (23-29) mEq/L BUN 10 (6-20) mg/dL Creatinine 0.55 L (0.60-1.20) mg/dL Glucose 118 H (70-105) mg/dL Calcium 7.7 L (8.6-10.3) mg/dL Calcium panel 09/06/17 Range/Units 04:37 Calcium 7.7 L (8.6-10.3) mg/dL Pituitary panel 09/06/17 Range/Units 04:37 Sodium 138 (136-145) mEq/L Potassium 3.6 (3.5-5.1) mEq/L Chloride 108 H (98-107) mEq/L Carbon Dioxide 25 (23-29) mEq/L BUN 10 (6-20) mg/dL Creatinine 0.55 L (0.60-1.20) mg/dL Glucose 118 H (70-105) mg/dL Calcium 7.7 L (8.6-10.3) mg/dL Adrenal panel 09/06/17 Range/Units 04:37 Sodium 138 (136-145) mEq/L Potassium 3.6 (3.5-5.1) mEq/L Chloride 108 H (98-107) mEq/L Carbon Dioxide 25 (23-29) mEq/L BUN 10 (6-20) mg/dL Creatinine 0.55 L (0.60-1.20) mg/dL Glucose 118 H (70-105) mg/dL Calcium 7.7 L (8.6-10.3) mg/dL - VTE Documentation of Mechanical Device: Intermittent pneumatic compression device Consult Discharge Plan - Plan Referrals: Roshan Tanner, SENIOR INVESTMENT MANAGER [Primary Care Provider] - <Macho Morales - Last Filed: 09/06/17 16:56> Date of Encounter: 09/06/17 Objective Vital Signs - Last 8 Hours Temp Pulse Resp BP Pulse Ox 09/06/17 14:50 98.2 F 97 18 103/69 97 09/06/17 11:27 98.4 F 86 18 111/69 100 Intake and Output 09/06/17 09/06/17 09/06/17 07:59 15:59 23:59 Intake Total 2440 / 2440 826 / 826 Output Total 500 / 500 0 / 0 Balance 1940 / 1940 826 / 826 Intake: IV Fluids 2440 / 2440 826 / 826 0.9 % Sodium Chloride 1,000 ML 1420 / 1420 816 / 816 @ 100 mls/hr IVC .Q10H [facility] Rx#: [id number] Mefoxin 2,000 MG In Water for 10 / 10 inj. (sterile) 10 ML @ 150 mls/ hr IVP Q8HR [facility] Rx#:[id number] Oral 0 / 0 0 / 0 Output: Urine 350 / 350 0 / 0 Gastric Drainage 150 / 150 0 / 0 Other: Meal NPO npo Percent of Meal Consumed 0% # Bowel Movements 0 Weight 63.9 kg Blood Glucose* 91 87 Patient Weight 09/06/17 23:59 Weight 63.9 kg - Labs 09/06/17 04:37 09/06/17 04:37 Diabetes panel 09/06/17 Range/Units 04:37 Sodium 138 (136-145) mEq/L Potassium 3.6 (3.5-5.1) mEq/L Chloride 108 H (98-107) mEq/L Carbon Dioxide 25 (23-29) mEq/L BUN 10 (6-20) mg/dL Creatinine 0.55 L (0.60-1.20) mg/dL Glucose 118 H (70-105) mg/dL Calcium 7.7 L (8.6-10.3) mg/dL Calcium panel 09/06/17 Range/Units 04:37 Calcium 7.7 L (8.6-10.3) mg/dL Pituitary panel 09/06/17 Range/Units 04:37 Sodium 138 (136-145) mEq/L Potassium 3.6 (3.5-5.1) mEq/L Chloride 108 H (98-107) mEq/L Carbon Dioxide 25 (23-29) mEq/L BUN 10 (6-20) mg/dL Creatinine 0.55 L (0.60-1.20) mg/dL Glucose 118 H (70-105) mg/dL Calcium 7.7 L (8.6-10.3) mg/dL Adrenal panel 09/06/17 Range/Units 04:37 Sodium 138 (136-145) mEq/L Potassium 3.6 (3.5-5.1) mEq/L Chloride 108 H (98-107) mEq/L Carbon Dioxide 25 (23-29) mEq/L BUN 10 (6-20) mg/dL Creatinine 0.55 L (0.60-1.20) mg/dL Glucose 118 H (70-105) mg/dL Calcium 7.7 L (8.6-10.3) mg/dL - Attending Attestation I examined this patient and my medical decision-making was reviewed with the Resident Physician. I agree with the documented findings, disposition and treatment plan as described except to the extent set forth below. The patient was seen and examined with rest and on morning rounds. Her pain control is fair. Incision is clean and dry. We will continue with nasogastric tube drainage and await bowel function. Macho Morales MD FACS
[2017-09-06] MEDS: *HR* HYDROmorphone 20 MG/20 ML PCA IVC PRN (17:13)
[2017-09-06] MEDS ORDERED: Acetaminophen IV 1,000 MG/100 ML INFUS..BTL IVPB ONE (22:55)
[2017-09-07] MEDS: 0.9 % Sodium Chloride 1,000 ML IVC SCH ×2 (00:15→15:30)
[2017-09-07] MEDS: cefOXitin 2,000 MG in Water for inj. (sterile) 20 ML 10 ML IVP SCH ×3 (00:49→15:31)
[2017-09-07] MEDS: *HR* Heparin 5,000 UNIT/ML VIAL SQ SCH ×2 (05:11→17:38)
[2017-09-07 06:27] LABS: Basophils % 0.2 %; Lymphocytes % 4.2 %
[2017-09-07 06:35] LABS: Hematocrit 30.9 % (35.3-44.9); Hemoglobin 9.8 g/dL (11.5-15.4); Immature Granulocytes % 0.5 % (0-4); Lymphocytes # 0.6 K/mcL (0.6-4.6); Mean Corpuscular HGB Conc 31.7 g/dL (31.6-35.5); Mean Corpuscular Hemoglobin 28.7 pg (28.0-33.3); Mean Corpuscular Volume 90.6 fL (83.0-100.0); Mean Platelet Volume 10.6 fL (9.4-12.4); Monocytes # 0.8 K/mcL (0.0-1.3); Neutrophils # 11.6 K/mcL (1.6-8.9); Platelet Count 231 K/mcL (140-400); Red Blood Count 3.41 M/mcL (3.82-4.97); Red Cell Distribution Width 13.7 % (11.5-14.5); Segmented Neutrophils % 89.1 %
[2017-09-07 06:51] LABS: BUN/Creatinine Ratio 17 (6-26); Blood Urea Nitrogen 9 mg/dL (6-20); Carbon Dioxide 23 mEq/L (23-29); Chloride 108 mEq/L (98-107); Glucose 88 mg/dL (70-105); Osmolality,Calculated 286 (280-300); Potassium 2.9 mEq/L (3.5-5.1); Sodium 139 mEq/L (136-145); eGFR For African Americans > 60 (> 60); eGFR For Non-African Americans > 60 (> 60)
[2017-09-07 07:00] LABS: Platelet Estimate Normal (Normal)
[2017-09-07] MEDS: Pantoprazole 40 MG VIAL IVP SCH (07:12)
--- NOTE | 2017-09-07 09:11 | General Surgery Progress Note ---
<Farhat Remy - Last Filed: 09/07/17 09:37> Date of Encounter: 09/07/17 Time of Encounter: 07:15 - Assessment and Plan (1) Small bowel obstruction Current Visit: No Status: Acute POD#2 sigmoid colectomy/ileocecetomy with Dr. 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 Ambulate with assist TID Subjective Narrative: Ms. Paez denies fever, states she is using the pain pump less due to less pain than yesterday and wanted to be less drowsy for morning rounds, she is conversant, denies shortness of breath, dysuria, no flatus. Objective Vital Signs - Last 8 Hours Temp Pulse Resp BP Pulse Ox 09/07/17 07:58 100.3 F H 105 16 109/71 97 09/07/17 04:00 99.1 F 96 16 121/73 91 Intake and Output 09/06/17 09/07/17 09/07/17 23:59 07:59 15:59 Intake Total 764 / 764 720 / 720 Output Total 300 / 300 850 / 850 Balance 464 / 464 -130 / -130 Intake: IV Fluids 764 / 764 720 / 720 0.9 % Sodium Chloride 1,000 ML 764 / 764 700 / 700 @ 100 mls/hr IVC .Q10H [facility] Rx#: [id number] Mefoxin 2,000 MG In Water for 20 / 20 inj. (sterile) 10 ML @ 150 mls/ hr IVP Q8HR [facility] Rx#:[id number] Oral 0 / 0 0 / 0 Output: Urine 300 / 300 700 / 700 Gastric Tube Lavage Amount 0 / 0 Right Nare 0 / 0 Gastric Drainage 150 / 150 Other: Meal NPO NPO Percent of Meal Consumed 0% 0% # Voids 0 # Bowel Movements 0 Weight 64.8 kg Blood Glucose* 83 87 Patient Weight 09/07/17 23:59 Weight 64.8 kg - General physical appearance well developed, well nourished, no distress - Eyes normal ocular movement - ENT normal mucosa - Neck Neck exam: no lymphadectomy - Respiratory normal expansion, normal respiratory effort, clear to auscultation - Cardiovascular Cardiovascular exam: Present: RRR, no murmurs/rubs/gallops. Absent: JVD - Abdomen Abdomen: Present: soft. Absent: guarding, rebound, rigid - Incision Incision: Present: clean and dry, intact - Neurologic normal sensation - Musculoskeletal normal posture - Psychiatric speech is normal, memory intact - Labs 09/07/17 04:53 09/07/17 04:53 Diabetes panel 09/07/17 Range/Units 04:53 Sodium 139 (136-145) mEq/L Potassium 2.9 L (3.5-5.1) mEq/L Chloride 108 H (98-107) mEq/L Carbon Dioxide 23 (23-29) mEq/L BUN 9 (6-20) mg/dL Creatinine 0.52 L (0.60-1.20) mg/dL Glucose 88 (70-105) mg/dL Calcium 8.0 L (8.6-10.3) mg/dL Calcium panel 09/07/17 Range/Units 04:53 Calcium 8.0 L (8.6-10.3) mg/dL Pituitary panel 09/07/17 Range/Units 04:53 Sodium 139 (136-145) mEq/L Potassium 2.9 L (3.5-5.1) mEq/L Chloride 108 H (98-107) mEq/L Carbon Dioxide 23 (23-29) mEq/L BUN 9 (6-20) mg/dL Creatinine 0.52 L (0.60-1.20) mg/dL Glucose 88 (70-105) mg/dL Calcium 8.0 L (8.6-10.3) mg/dL Adrenal panel 09/07/17 Range/Units 04:53 Sodium 139 (136-145) mEq/L Potassium 2.9 L (3.5-5.1) mEq/L Chloride 108 H (98-107) mEq/L Carbon Dioxide 23 (23-29) mEq/L BUN 9 (6-20) mg/dL Creatinine 0.52 L (0.60-1.20) mg/dL Glucose 88 (70-105) mg/dL Calcium 8.0 L (8.6-10.3) mg/dL - VTE Documentation of Mechanical Device: Intermittent pneumatic compression device Consult Discharge Plan - Plan Referrals: Roshan Tanner, SANDWICH WRAPPER [Primary Care Provider] - <Macho Morales - Last Filed: 09/07/17 16:00> Date of Encounter: 09/07/17 Objective Vital Signs - Last 8 Hours Temp Pulse Resp BP Pulse Ox 09/07/17 14:17 98.5 F 101 16 121/77 100 09/07/17 10:18 99.7 F H 104 18 117/74 96 Intake and Output 09/06/17 09/07/17 09/07/17 23:59 07:59 15:59 Intake Total 764 / 764 720 / 720 832 / 832 Output Total 300 / 300 850 / 850 0 / 0 Balance 464 / 464 -130 / -130 832 / 832 Intake: IV Fluids 764 / 764 720 / 720 832 / 832 0.9 % Sodium Chloride 1,000 ML 764 / 764 700 / 700 300 / 300 @ 100 mls/hr IVC .Q10H [facility] Rx#: [id number] Mefoxin 2,000 MG In Water for 10 / 10 inj. (sterile) 10 ML @ 150 mls/ hr IVP Q8HR [facility] Rx#:[id number] KCl 40 MEQ Xylocaine 2 ML In 522 / 522 Dextrose 5% 500 ML @ 130.5 mls/ hr IVPB ONCE ONE Rx#:[id number] Oral 0 / 0 0 / 0 Output: Urine 300 / 300 700 / 700 0 / 0 Gastric Tube Lavage Amount 0 / 0 0 / 0 Right Nare 0 / 0 0 / 0 Gastric Drainage 150 / 150 Other: Meal NPO NPO nope Percent of Meal Consumed 0% 0% # Voids 0 # Bowel Movements 0 Weight 64.8 kg Blood Glucose* 83 87 102 Patient Weight 09/07/17 23:59 Weight 64.8 kg - Labs 09/07/17 04:53 09/07/17 04:53 Diabetes panel 09/07/17 Range/Units 04:53 Sodium 139 (136-145) mEq/L Potassium 2.9 L (3.5-5.1) mEq/L Chloride 108 H (98-107) mEq/L Carbon Dioxide 23 (23-29) mEq/L BUN 9 (6-20) mg/dL Creatinine 0.52 L (0.60-1.20) mg/dL Glucose 88 (70-105) mg/dL Calcium 8.0 L (8.6-10.3) mg/dL Calcium panel 09/07/17 Range/Units 04:53 Calcium 8.0 L (8.6-10.3) mg/dL Pituitary panel 09/07/17 Range/Units 04:53 Sodium 139 (136-145) mEq/L Potassium 2.9 L (3.5-5.1) mEq/L Chloride 108 H (98-107) mEq/L Carbon Dioxide 23 (23-29) mEq/L BUN 9 (6-20) mg/dL Creatinine 0.52 L (0.60-1.20) mg/dL Glucose 88 (70-105) mg/dL Calcium 8.0 L (8.6-10.3) mg/dL Adrenal panel 09/07/17 Range/Units 04:53 Sodium 139 (136-145) mEq/L Potassium 2.9 L (3.5-5.1) mEq/L Chloride 108 H (98-107) mEq/L Carbon Dioxide 23 (23-29) mEq/L BUN 9 (6-20) mg/dL Creatinine 0.52 L (0.60-1.20) mg/dL Glucose 88 (70-105) mg/dL Calcium 8.0 L (8.6-10.3) mg/dL - Attending Attestation I examined this patient and my medical decision-making was reviewed with the Resident Physician. I agree with the documented findings, disposition and treatment plan as described except to the extent set forth below. The patient is seen and evaluated with resident on morning rounds. She is doing well after(ileocecectomy and sigmoid colectomy. Pain control is excellent. Wound is clean and dry. continue nasogastric tube during this point Macho Morales MD FACS
[2017-09-07] MEDS ORDERED: Potassium Chloride 40 MEQ, Lidocaine 1% 2 ML in D5% in Water 500 ML IVPB ONE (09:31)
[2017-09-08] MEDS: cefOXitin 2,000 MG in Water for inj. (sterile) 20 ML 10 ML IVP SCH ×3 (00:07→17:09)
[2017-09-08 04:51] LABS: Basophils % 0.2 %; Eosinophils % 0.2 %; Hematocrit 29.4 % (35.3-44.9); Hemoglobin 9.6 g/dL (11.5-15.4); Immature Granulocytes % 0.9 % (0-4); Lymphocytes # 0.8 K/mcL (0.6-4.6); Mean Corpuscular HGB Conc 32.7 g/dL (31.6-35.5); Mean Corpuscular Hemoglobin 28.7 pg (28.0-33.3); Mean Platelet Volume 10.7 fL (9.4-12.4); Monocytes # 0.9 K/mcL (0.0-1.3); Monocytes % 7.8 %; Neutrophils # 9.2 K/mcL (1.6-8.9); Platelet Count 125 K/mcL (140-400); Red Blood Count 3.34 M/mcL (3.82-4.97); Red Cell Distribution Width 13.3 % (11.5-14.5); Segmented Neutrophils % 83.9 %
[2017-09-08 04:57] LABS: BUN/Creatinine Ratio 13 (6-26); Blood Urea Nitrogen 5 mg/dL (6-20); Calcium 8.1 mg/dL (8.6-10.3); Carbon Dioxide 19 mEq/L (23-29); Chloride 110 mEq/L (98-107); Glucose 83 mg/dL (70-105); Osmolality,Calculated 284 (280-300); Potassium 3.7 mEq/L (3.5-5.1); Sodium 139 mEq/L (136-145); eGFR For African Americans > 60 (> 60); eGFR For Non-African Americans > 60 (> 60)
[2017-09-08 05:22] LABS: Platelet Estimate Normal (Normal)
[2017-09-08] MEDS: *HR* Heparin 5,000 UNIT/ML VIAL SQ SCH ×2 (05:42→17:09)
[2017-09-08] MEDS: 0.9 % Sodium Chloride 1,000 ML IVC SCH ×4 (05:43→12:29)
[2017-09-08] MEDS: Pantoprazole 40 MG VIAL IVP SCH (08:42)
--- NOTE | 2017-09-08 09:16 | General Surgery Progress Note ---
<SandritaFarhat - Last Filed: 09/08/17 09:20> Date of Encounter: 09/08/17 Time of Encounter: 06:30 - Assessment and Plan (1) Small bowel obstruction Current Visit: No Status: Acute POD#3 sigmoid colectomy/ileocecetomy with Dr. Morales (09/05/17) Pre-op presence of small bowel to colon fistula corrected; patient remains afebrile Leukocytosis resolved 450cc from NG tube Plan: Monitoring for anastomosis leaks (x2 anastamoses during procedure), continue judicious bowel rest in absence of diverting ostomy currently denies clinical signs of fever, palpitations, nausea/vomiting, wound site drainage no hypotension, UOP adequate Monitor electrolytes Continuing NPO today with 100cc IV fluids/hr NG tube to gravity ([place] bag) Awaiting return of bowel function, incentive spirometry at bedside q1h, pain control with PULP OPERATOR. Ambulate with assist TID Subjective Patient reports: no new complaints, pain is less, voiding w/o difficulty, no flatus, afebrile Objective Vital Signs - Last 8 Hours Temp Pulse Resp BP Pulse Ox 09/08/17 07:07 100.3 F H 87 14 120/83 98 09/08/17 05:43 99.3 F 108 16 130/88 98 Intake and Output 09/07/17 09/08/17 09/08/17 23:59 07:59 15:59 Intake Total 200 / 200 810 / 810 0 / 0 Output Total 750 / 750 800 / 800 Balance -550 / -550 10 / 10 0 / 0 Intake: IV Fluids 200 / 200 810 / 810 0.9 % Sodium Chloride 1,000 ML 200 / 200 800 / 800 @ 100 mls/hr IVC .Q10H [facility] Rx#: [id number] Mefoxin 2,000 MG In Water for 10 10 inj. (sterile) 10 ML @ 150 mls/ hr IVP Q8HR [facility] Rx#:[id number] Oral 0 / 0 0 / 0 0 / 0 Output: Urine 550 / 550 350 / 350 Gastric Drainage 200 / 200 450 / 450 Other: Meal NPO DINNER NPO Percent of Meal Consumed 0% Weight 62.051 kg Blood Glucose* 74 72 Patient Weight 09/08/17 23:59 Weight 62.051 kg - General physical appearance well developed, well nourished, no distress - Eyes normal ocular movement - ENT normal mucosa - Neck Neck exam: no lymphadectomy - Respiratory normal expansion, normal respiratory effort, clear to auscultation - Cardiovascular Cardiovascular exam: Present: RRR, no murmurs/rubs/gallops. Absent: JVD - Abdomen Abdomen: Present: soft. Absent: guarding, rigid - Incision Incision: Present: clean and dry, intact - Integumentary no abnormal pigmentation - Neurologic normal coordination, normal sensation - Psychiatric speech is normal, memory intact - Labs 09/08/17 04:30 09/08/17 04:30 Diabetes panel 09/08/17 Range/Units 04:30 Sodium 139 (136-145) mEq/L Potassium 3.7 D (3.5-5.1) mEq/L Chloride 110 H (98-107) mEq/L Carbon Dioxide 19 L (23-29) mEq/L BUN 5 L (6-20) mg/dL Creatinine 0.40 L (0.60-1.20) mg/dL Glucose 83 (70-105) mg/dL Calcium 8.1 L (8.6-10.3) mg/dL Calcium panel 09/08/17 Range/Units 04:30 Calcium 8.1 L (8.6-10.3) mg/dL Pituitary panel 09/08/17 Range/Units 04:30 Sodium 139 (136-145) mEq/L Potassium 3.7 D (3.5-5.1) mEq/L Chloride 110 H (98-107) mEq/L Carbon Dioxide 19 L (23-29) mEq/L BUN 5 L (6-20) mg/dL Creatinine 0.40 L (0.60-1.20) mg/dL Glucose 83 (70-105) mg/dL Calcium 8.1 L (8.6-10.3) mg/dL Adrenal panel 09/08/17 Range/Units 04:30 Sodium 139 (136-145) mEq/L Potassium 3.7 D (3.5-5.1) mEq/L Chloride 110 H (98-107) mEq/L Carbon Dioxide 19 L (23-29) mEq/L BUN 5 L (6-20) mg/dL Creatinine 0.40 L (0.60-1.20) mg/dL Glucose 83 (70-105) mg/dL Calcium 8.1 L (8.6-10.3) mg/dL - VTE Documentation of Mechanical Device: Intermittent pneumatic compression device Consult Discharge Plan - Plan Referrals: Roshan Tanner, DAYCARE PROVIDER [Primary Care Provider] - <Macho Morales - Last Filed: 09/09/17 10:48> Date of Encounter: 09/08/17 Objective Vital Signs - Last 8 Hours Temp Pulse Resp BP Pulse Ox 09/09/17 10:38 98.9 F 86 16 120/82 100 09/09/17 07:12 98.8 F 82 16 118/78 99 09/09/17 03:52 99.0 F 95 15 116/79 98 Intake and Output 09/08/17 09/09/17 09/09/17 23:59 07:59 15:59 Intake Total 1010 / 1010 120 / 120 Output Total 1125 / 1125 925 / 925 300 / 300 Balance -115 / -115 -915 / -915 -180 / -180 Intake: IV Fluids 1010 / 1010 0.9 % Sodium Chloride 1,000 ML 1000 / 1000 @ 100 mls/hr IVC .Q10H [facility] Rx#: [id number] Mefoxin 2,000 MG In Water for inj. (sterile) 10 ML @ 150 mls/ hr IVP Q8HR [facility] Rx#:[id number] Oral 0 / 0 0 / 0 120 / 120 Output: Urine 1125 / 1125 925 / 925 300 / 300 Other: # Bowel Movements 0 0 Weight 62.3 kg Blood Glucose* 72 Patient Weight 09/09/17 23:59 Weight 62.3 kg - Labs 09/09/17 06:53 09/09/17 06:45 Diabetes panel 09/09/17 Range/Units 06:45 Sodium 135 L (136-145) mEq/L Potassium 3.2 L (3.5-5.1) mEq/L Chloride 108 H (98-107) mEq/L Carbon Dioxide 16 L (23-29) mEq/L BUN 6 (6-20) mg/dL Creatinine 0.37 L (0.60-1.20) mg/dL Glucose 74 (70-105) mg/dL Calcium 7.8 L (8.6-10.3) mg/dL Calcium panel 09/09/17 Range/Units 06:45 Calcium 7.8 L (8.6-10.3) mg/dL Pituitary panel 09/09/17 Range/Units 06:45 Sodium 135 L (136-145) mEq/L Potassium 3.2 L (3.5-5.1) mEq/L Chloride 108 H (98-107) mEq/L Carbon Dioxide 16 L (23-29) mEq/L BUN 6 (6-20) mg/dL Creatinine 0.37 L (0.60-1.20) mg/dL Glucose 74 (70-105) mg/dL Calcium 7.8 L (8.6-10.3) mg/dL Adrenal panel 09/09/17 Range/Units 06:45 Sodium 135 L (136-145) mEq/L Potassium 3.2 L (3.5-5.1) mEq/L Chloride 108 H (98-107) mEq/L Carbon Dioxide 16 L (23-29) mEq/L BUN 6 (6-20) mg/dL Creatinine 0.37 L (0.60-1.20) mg/dL Glucose 74 (70-105) mg/dL Calcium 7.8 L (8.6-10.3) mg/dL - Attending Attestation I examined this patient and my medical decision-making was reviewed with the Resident Physician. I agree with the documented findings, disposition and treatment plan as described except to the extent set forth below. The patient is seen and evaluated on morning rounds with the resident. She is doing quite well. She has bowel sounds today. We should be up to get the nasogastric tube out later today. I will keep her nothing by mouth for the rest of the day. I will reevaluate her tomorrow to see if we can start diet. She is doing very well after complex ileocectomy and sigmoid colectomy Macho Morales MD FACS
[2017-09-09] MEDS: cefOXitin 2,000 MG in Water for inj. (sterile) 20 ML 10 ML IVP SCH ×3 (00:31→18:36)
[2017-09-09] MEDS: 0.9 % Sodium Chloride 1,000 ML IVC SCH ×2 (00:45→11:51)
[2017-09-09] MEDS: *HR* Heparin 5,000 UNIT/ML VIAL SQ SCH ×2 (05:43→18:36)
[2017-09-09 07:10] LABS: Basophils % 0.3 %; Eosinophils # 0.1 K/mcL (0.0-0.6); Eosinophils % 1.1 %; Hematocrit 25.3 % (35.3-44.9); Hemoglobin 8.5 g/dL (11.5-15.4); Immature Granulocytes % 1.1 % (0-4); Lymphocytes # 0.5 K/mcL (0.6-4.6); Lymphocytes % 7.1 %; Mean Corpuscular HGB Conc 33.6 g/dL (31.6-35.5); Mean Corpuscular Volume 86.3 fL (83.0-100.0); Mean Platelet Volume 9.6 fL (9.4-12.4); Monocytes # 0.5 K/mcL (0.0-1.3); Monocytes % 7.2 %; Neutrophils # 6.2 K/mcL (1.6-8.9); Platelet Count 209 K/mcL (140-400); Red Blood Count 2.93 M/mcL (3.82-4.97); Red Cell Distribution Width 13.2 % (11.5-14.5); Segmented Neutrophils % 83.2 %
[2017-09-09 07:32] LABS: BUN/Creatinine Ratio 16 (6-26); Blood Urea Nitrogen 6 mg/dL (6-20); Calcium 7.8 mg/dL (8.6-10.3); Carbon Dioxide 16 mEq/L (23-29); Chloride 108 mEq/L (98-107); Glucose 74 mg/dL (70-105); Osmolality,Calculated 276 (280-300); Potassium 3.2 mEq/L (3.5-5.1); Sodium 135 mEq/L (136-145); eGFR For African Americans > 60 (> 60); eGFR For Non-African Americans > 60 (> 60)
[2017-09-09] MEDS: Pantoprazole 40 MG VIAL IVP SCH (08:29)
--- NOTE | 2017-09-09 08:55 | General Surgery Progress Note ---
<SandritaFarhat - Last Filed: 09/09/17 08:55> Date of Encounter: 09/09/17 Time of Encounter: 06:45 - Assessment and Plan (1) Small bowel obstruction Current Visit: No Status: Acute POD#4 sigmoid colectomy/ileocecetomy with Dr. 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 Ambulate with assist TID Subjective Patient reports: tolerating liquids well, voiding w/o difficulty, no flatus, afebrile Objective Vital Signs - Last 8 Hours Temp Pulse Resp BP Pulse Ox 09/09/17 07:12 98.8 F 82 16 118/78 99 09/09/17 03:52 99.0 F 95 15 116/79 98 Intake and Output 09/08/17 09/09/17 09/09/17 23:59 07:59 15:59 Intake Total 1010 / 1010 10 / 10 Output Total 1125 / 1125 925 / 925 Balance -115 / -115 -915 / -915 Intake: IV Fluids 1010 / 1010 10 / 10 0.9 % Sodium Chloride 1,000 ML 1000 / 1000 @ 100 mls/hr IVC .Q10H [facility] Rx#: [id number] Mefoxin 2,000 MG In Water for 10 10 inj. (sterile) 10 ML @ 150 mls/ hr IVP Q8HR [facility] Rx#:[id number] Oral 0 / 0 0 / 0 Output: Urine 1125 / 1125 925 / 925 Other: # Bowel Movements 0 Weight 62.3 kg Blood Glucose* 72 Patient Weight 09/09/17 23:59 Weight 62.3 kg - General physical appearance well developed, well nourished, no distress - Eyes normal ocular movement - ENT normal mucosa - Neck Neck exam: no lymphadectomy - Respiratory normal expansion, normal respiratory effort, clear to auscultation - Cardiovascular Cardiovascular exam: Present: RRR, no murmurs/rubs/gallops. Absent: JVD - Abdomen Abdomen: Present: bowel sounds present, soft. Absent: guarding, rigid - Incision Incision: Present: clean and dry, intact - Integumentary no abnormal pigmentation - Neurologic normal sensation - Musculoskeletal normal posture - Psychiatric speech is normal, memory intact - Labs 09/09/17 06:53 09/09/17 06:45 Diabetes panel 09/09/17 Range/Units 06:45 Sodium 135 L (136-145) mEq/L Potassium 3.2 L (3.5-5.1) mEq/L Chloride 108 H (98-107) mEq/L Carbon Dioxide 16 L (23-29) mEq/L BUN 6 (6-20) mg/dL Creatinine 0.37 L (0.60-1.20) mg/dL Glucose 74 (70-105) mg/dL Calcium 7.8 L (8.6-10.3) mg/dL Calcium panel 09/09/17 Range/Units 06:45 Calcium 7.8 L (8.6-10.3) mg/dL Pituitary panel 09/09/17 Range/Units 06:45 Sodium 135 L (136-145) mEq/L Potassium 3.2 L (3.5-5.1) mEq/L Chloride 108 H (98-107) mEq/L Carbon Dioxide 16 L (23-29) mEq/L BUN 6 (6-20) mg/dL Creatinine 0.37 L (0.60-1.20) mg/dL Glucose 74 (70-105) mg/dL Calcium 7.8 L (8.6-10.3) mg/dL Adrenal panel 09/09/17 Range/Units 06:45 Sodium 135 L (136-145) mEq/L Potassium 3.2 L (3.5-5.1) mEq/L Chloride 108 H (98-107) mEq/L Carbon Dioxide 16 L (23-29) mEq/L BUN 6 (6-20) mg/dL Creatinine 0.37 L (0.60-1.20) mg/dL Glucose 74 (70-105) mg/dL Calcium 7.8 L (8.6-10.3) mg/dL - VTE Documentation of Mechanical Device: Intermittent pneumatic compression device Consult Discharge Plan - Plan Referrals: Roshan Tanner, HANDLE ATTACHER [Primary Care Provider] - <Macho Morales - Last Filed: 09/09/17 11:02> Date of Encounter: 09/09/17 Objective Vital Signs - Last 8 Hours Temp Pulse Resp BP Pulse Ox 09/09/17 10:38 98.9 F 86 16 120/82 100 09/09/17 07:12 98.8 F 82 16 118/78 99 09/09/17 03:52 99.0 F 95 15 116/79 98 Intake and Output 09/08/17 09/09/17 09/09/17 23:59 07:59 15:59 Intake Total 1010 / 1010 120 / 120 Output Total 1125 / 1125 925 / 925 300 / 300 Balance -115 / -115 -915 / -915 -180 / -180 Intake: IV Fluids 1010 / 1010 0.9 % Sodium Chloride 1,000 ML 1000 / 1000 @ 100 mls/hr IVC .Q10H [facility] Rx#: [id number] Mefoxin 2,000 MG In Water for inj. (sterile) 10 ML @ 150 mls/ hr IVP Q8HR [facility] Rx#:[id number] Oral 0 / 0 0 / 0 120 / 120 Output: Urine 1125 / 1125 925 / 925 300 / 300 Other: # Bowel Movements 0 0 Weight 62.3 kg Blood Glucose* 72 Patient Weight 09/09/17 23:59 Weight 62.3 kg - Labs 09/09/17 06:53 09/09/17 06:45 Diabetes panel 09/09/17 Range/Units 06:45 Sodium 135 L (136-145) mEq/L Potassium 3.2 L (3.5-5.1) mEq/L Chloride 108 H (98-107) mEq/L Carbon Dioxide 16 L (23-29) mEq/L BUN 6 (6-20) mg/dL Creatinine 0.37 L (0.60-1.20) mg/dL Glucose 74 (70-105) mg/dL Calcium 7.8 L (8.6-10.3) mg/dL Calcium panel 09/09/17 Range/Units 06:45 Calcium 7.8 L (8.6-10.3) mg/dL Pituitary panel 09/09/17 Range/Units 06:45 Sodium 135 L (136-145) mEq/L Potassium 3.2 L (3.5-5.1) mEq/L Chloride 108 H (98-107) mEq/L Carbon Dioxide 16 L (23-29) mEq/L BUN 6 (6-20) mg/dL Creatinine 0.37 L (0.60-1.20) mg/dL Glucose 74 (70-105) mg/dL Calcium 7.8 L (8.6-10.3) mg/dL Adrenal panel 09/09/17 Range/Units 06:45 Sodium 135 L (136-145) mEq/L Potassium 3.2 L (3.5-5.1) mEq/L Chloride 108 H (98-107) mEq/L Carbon Dioxide 16 L (23-29) mEq/L BUN 6 (6-20) mg/dL Creatinine 0.37 L (0.60-1.20) mg/dL Glucose 74 (70-105) mg/dL Calcium 7.8 L (8.6-10.3) mg/dL - Attending Attestation I examined this patient and my medical decision-making was reviewed with the Resident Physician. I agree with the documented findings, disposition and treatment plan as described except to the extent set forth below. The patient is seen and evaluated with resident on morning rounds. She looks just great today her pain is in excellent control. She has good bowel sounds. She is not passing gas yet. We will start her on clear liquids today. Macho Morales MD FACS
[2017-09-10] MEDS: 0.9 % Sodium Chloride 1,000 ML IVC SCH ×4 (00:46→16:38)
[2017-09-10] MEDS: cefOXitin 2,000 MG in Water for inj. (sterile) 20 ML 10 ML IVP SCH ×4 (01:01→23:59)
[2017-09-10 05:27] LABS: Basophils % 0.6 %; Eosinophils # 0.1 K/mcL (0.0-0.6); Eosinophils % 1.2 %; Hematocrit 29.3 % (35.3-44.9); Hemoglobin 9.9 g/dL (11.5-15.4); Immature Granulocytes % 1.7 % (0-4); Lymphocytes # 0.7 K/mcL (0.6-4.6); Lymphocytes % 9.6 %; Mean Corpuscular HGB Conc 33.8 g/dL (31.6-35.5); Mean Corpuscular Hemoglobin 28.5 pg (28.0-33.3); Mean Corpuscular Volume 84.4 fL (83.0-100.0); Mean Platelet Volume 9.8 fL (9.4-12.4); Monocytes # 0.6 K/mcL (0.0-1.3); Monocytes % 8.4 %; Neutrophils # 5.7 K/mcL (1.6-8.9); Platelet Count 281 K/mcL (140-400); Red Blood Count 3.47 M/mcL (3.82-4.97); Segmented Neutrophils % 78.5 %
[2017-09-10 05:42] LABS: BUN/Creatinine Ratio 6 (6-26); Blood Urea Nitrogen 3 mg/dL (6-20); Calcium 8.3 mg/dL (8.6-10.3); Carbon Dioxide 21 mEq/L (23-29); Chloride 103 mEq/L (98-107); Glucose 108 mg/dL (70-105); Osmolality,Calculated 275 (280-300); Potassium 2.9 mEq/L (3.5-5.1); Sodium 134 mEq/L (136-145); eGFR For African Americans > 60 (> 60); eGFR For Non-African Americans > 60 (> 60)
[2017-09-10] MEDS: *HR* Heparin 5,000 UNIT/ML VIAL SQ SCH ×2 (06:01→18:21)
[2017-09-10] MEDS: Pantoprazole 40 MG VIAL IVP SCH (08:22)
[2017-09-10] MEDS ORDERED: *HR* OxyCODONE/APAP 5/325 TABLET PO PRN (08:26)
[2017-09-10] MEDS ORDERED: *HR* OxyCODONE/APAP 10/325 TABLET PO PRN (08:26)
--- NOTE | 2017-09-10 09:56 | General Surgery Progress Note ---
<Farhat Remy - Last Filed: 09/10/17 10:02> Date of Encounter: 09/10/17 Time of Encounter: 08:00 - Assessment and Plan (1) Small bowel obstruction Current Visit: No Status: Acute POD#5 sigmoid colectomy/ileocecetomy with Dr. 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 Morales 2 week after discharge, GI appointment outpatient in setting of possible Crohn's disease (current manifestation resected) Incentive spirometry at bedside q1h, pain control with ASSISTANT PROFESSOR OF NURSING. Ambulate with assist TID Subjective Narrative: Patient passed flatus yesterday and continues to do so. Tolerating her clear liquid diet without nausea or vomiting, pain in good control. She denies fevers , the occasional abdominal pain worsened by movement, but no palpitations, sweating, worsening abdominal pain. Objective Vital Signs - Last 8 Hours Temp Pulse Resp BP Pulse Ox 09/10/17 06:32 98.6 F 92 16 114/78 98 09/10/17 05:18 99.3 F 09/10/17 03:15 100.1 F H 102 15 126/77 98 Intake and Output 09/09/17 09/10/17 09/10/17 23:59 07:59 15:59 Intake Total 1820 / 1820 220 / 220 1159 / 1159 Output Total 400 / 400 0 / 0 Balance 1420 / 1420 220 / 220 1159 / 1159 Intake: IV Fluids 1010 / 1010 799 / 799 0.9 % Sodium Chloride 1,000 ML 1000 / 1000 779 / 779 @ 100 mls/hr IVC .Q10H [facility] Rx#: [id number] Mefoxin 2,000 MG In Water for 20 / 20 inj. (sterile) 10 ML @ 150 mls/ hr IVP Q8HR [facility] Rx#:[id number] Oral 810 / 810 220 / 220 360 / 360 Output: Urine 400 / 400 0 / 0 Other: Meal clears Breakfast Percent of Meal Consumed 80% # Voids 1 1 # Bowel Movements 0 0 Weight 65.8 kg Patient Weight 09/10/17 23:59 Weight 65.8 kg - General physical appearance well developed, well nourished, no distress - Eyes normal ocular movement - ENT normal mucosa - Neck Neck exam: no lymphadectomy - Respiratory normal respiratory effort, clear to auscultation - Cardiovascular Cardiovascular exam: Present: RRR, no murmurs/rubs/gallops. Absent: JVD - Abdomen Abdomen: Present: soft. Absent: guarding, rigid - Incision Incision: Present: clean and dry, intact - Integumentary no abnormal pigmentation - Neurologic normal coordination, normal sensation - Musculoskeletal normal posture - Psychiatric speech is normal, memory intact - Labs 09/10/17 05:02 09/10/17 05:02 Diabetes panel 09/10/17 Range/Units 05:02 Sodium 134 L (136-145) mEq/L Potassium 2.9 L (3.5-5.1) mEq/L Chloride 103 (98-107) mEq/L Carbon Dioxide 21 L (23-29) mEq/L BUN 3 L (6-20) mg/dL Creatinine 0.49 L (0.60-1.20) mg/dL Glucose 108 H (70-105) mg/dL Calcium 8.3 L (8.6-10.3) mg/dL Calcium panel 09/10/17 Range/Units 05:02 Calcium 8.3 L (8.6-10.3) mg/dL Pituitary panel 09/10/17 Range/Units 05:02 Sodium 134 L (136-145) mEq/L Potassium 2.9 L (3.5-5.1) mEq/L Chloride 103 (98-107) mEq/L Carbon Dioxide 21 L (23-29) mEq/L BUN 3 L (6-20) mg/dL Creatinine 0.49 L (0.60-1.20) mg/dL Glucose 108 H (70-105) mg/dL Calcium 8.3 L (8.6-10.3) mg/dL Adrenal panel 09/10/17 Range/Units 05:02 Sodium 134 L (136-145) mEq/L Potassium 2.9 L (3.5-5.1) mEq/L Chloride 103 (98-107) mEq/L Carbon Dioxide 21 L (23-29) mEq/L BUN 3 L (6-20) mg/dL Creatinine 0.49 L (0.60-1.20) mg/dL Glucose 108 H (70-105) mg/dL Calcium 8.3 L (8.6-10.3) mg/dL - VTE Documentation of Mechanical Device: Intermittent pneumatic compression device Consult Discharge Plan - Plan Referrals: Roshan Tanner, ERNA [Primary Care Provider] - <Macho Morales - Last Filed: 09/10/17 12:31> Date of Encounter: 09/10/17 Objective Vital Signs - Last 8 Hours Temp Pulse Resp BP Pulse Ox 09/10/17 10:43 99.8 F H 97 16 104/70 97 09/10/17 06:32 98.6 F 92 16 114/78 98 09/10/17 05:18 99.3 F Intake and Output 09/09/17 09/10/17 09/10/17 23:59 07:59 15:59 Intake Total 1820 / 1820 220 / 220 1500 / 1500 Output Total 400 / 400 0 / 0 250 / 250 Balance 1420 / 1420 220 / 220 1250 / 1250 Intake: IV Fluids 1010 / 1010 1020 / 1020 0.9 % Sodium Chloride 1,000 ML 1000 / 1000 1000 / 1000 @ 100 mls/hr IVC .Q10H [facility] Rx#: [id number] Mefoxin 2,000 MG In Water for 20 / 20 inj. (sterile) 10 ML @ 150 mls/ hr IVP Q8HR [facility] Rx#:[id number] Oral 810 / 810 220 / 220 480 / 480 Output: Urine 400 / 400 0 / 0 250 / 250 Other: Meal clears Breakfast Percent of Meal Consumed 80% # Voids 1 1 # Bowel Movements 0 0 Weight 65.8 kg Patient Weight 09/10/17 23:59 Weight 65.8 kg - Labs 09/10/17 05:02 09/10/17 05:02 Diabetes panel 09/10/17 Range/Units 05:02 Sodium 134 L (136-145) mEq/L Potassium 2.9 L (3.5-5.1) mEq/L Chloride 103 (98-107) mEq/L Carbon Dioxide 21 L (23-29) mEq/L BUN 3 L (6-20) mg/dL Creatinine 0.49 L (0.60-1.20) mg/dL Glucose 108 H (70-105) mg/dL Calcium 8.3 L (8.6-10.3) mg/dL Calcium panel 09/10/17 Range/Units 05:02 Calcium 8.3 L (8.6-10.3) mg/dL Pituitary panel 09/10/17 Range/Units 05:02 Sodium 134 L (136-145) mEq/L Potassium 2.9 L (3.5-5.1) mEq/L Chloride 103 (98-107) mEq/L Carbon Dioxide 21 L (23-29) mEq/L BUN 3 L (6-20) mg/dL Creatinine 0.49 L (0.60-1.20) mg/dL Glucose 108 H (70-105) mg/dL Calcium 8.3 L (8.6-10.3) mg/dL Adrenal panel 09/10/17 Range/Units 05:02 Sodium 134 L (136-145) mEq/L Potassium 2.9 L (3.5-5.1) mEq/L Chloride 103 (98-107) mEq/L Carbon Dioxide 21 L (23-29) mEq/L BUN 3 L (6-20) mg/dL Creatinine 0.49 L (0.60-1.20) mg/dL Glucose 108 H (70-105) mg/dL Calcium 8.3 L (8.6-10.3) mg/dL - Attending Attestation I examined this patient and my medical decision-making was reviewed with the Resident Physician. I agree with the documented findings, disposition and treatment plan as described except to the extent set forth below. The patient is seen and evaluated on morning rounds with the resident. I am very pleased with her overall clinical course. She is now passing flatus. We will advance her to regular diet. We will plan discharge tomorrow. Macho Morales MD FACS
[2017-09-10] MEDS ORDERED: Potassium Chloride 40 MEQ, Lidocaine 1% 2 ML in D5% in Water 500 ML IVPB ONE ×2 (12:44)
[2017-09-10 14:50] LABS: Bilirubin,Urine Negative (Negative); Blood,Urine Small (Negative); Clarity,Urine Clear (Clear); Color,Urine Yellow (Yellow); Glucose,Urine (UA) Normal (Normal); Ketones,Urine Trace mg/dL (Negative); Leukocyte Esterase,Urine Negative (Negative); Nitrite,Urine Negative (Negative); PH,Urine 6.5 pH Units (5.0-8.0); Protein,Urine Negative (Neg-Trace); Specific Gravity,Urine 1.015 (1.010-1.025); Urobilinogen,Urine Normal (Normal)
[2017-09-10 14:53] LABS: Bacteria,Urine None Seen per hpf (None-Few); Hyaline Casts,Urine None Seen per lpf (None-Few); Squamous Epithelial Cell,Urine Few per lpf (None-Few); WBC,Urine 0-3 per hpf (0-3)
[2017-09-11] MEDS: *HR* Heparin 5,000 UNIT/ML VIAL SQ SCH (06:11)
[2017-09-11] MEDS: 0.9 % Sodium Chloride 1,000 ML IVC SCH (06:14)
[2017-09-11 07:10] LABS: Basophils % 0.4 %; Eosinophils # 0.1 K/mcL (0.0-0.6); Eosinophils % 1.5 %; Hematocrit 27.2 % (35.3-44.9); Hemoglobin 9.3 g/dL (11.5-15.4); Immature Granulocytes % 2.2 % (0-4); Lymphocytes # 0.8 K/mcL (0.6-4.6); Lymphocytes % 12.2 %; Mean Corpuscular HGB Conc 34.2 g/dL (31.6-35.5); Mean Corpuscular Hemoglobin 28.4 pg (28.0-33.3); Mean Corpuscular Volume 83.2 fL (83.0-100.0); Mean Platelet Volume 9.9 fL (9.4-12.4); Monocytes # 0.8 K/mcL (0.0-1.3); Monocytes % 11.5 %; Neutrophils # 4.8 K/mcL (1.6-8.9); Platelet Count 240 K/mcL (140-400); Red Blood Count 3.27 M/mcL (3.82-4.97); Red Cell Distribution Width 12.9 % (11.5-14.5); Segmented Neutrophils % 72.2 %
[2017-09-11 07:28] LABS: BUN/Creatinine Ratio 11 (6-26); Blood Urea Nitrogen 4 mg/dL (6-20); Calcium 8.5 mg/dL (8.6-10.3); Carbon Dioxide 28 mEq/L (23-29); Chloride 101 mEq/L (98-107); Glucose 106 mg/dL (70-105); Magnesium 1.7 mg/dL (1.6-2.6); Osmolality,Calculated 283 (280-300); Phosphorous 2.9 mg/dL (2.7-4.5); Potassium 2.8 mEq/L (3.5-5.1); Sodium 138 mEq/L (136-145); eGFR For African Americans > 60 (> 60); eGFR For Non-African Americans > 60 (> 60)
[2017-09-11] MEDS: cefOXitin 2,000 MG in Water for inj. (sterile) 20 ML 10 ML IVP SCH (09:29)
[2017-09-11] MEDS: Pantoprazole 40 MG VIAL IVP SCH (09:29)
[2017-09-11 11:40] VITALS: BP 109/72
--- NOTE | 2017-09-11 12:31 | Discharge Summary ---
Orders not resulted at time of discharge: Pending orders 09/12/17 04:00 Magnesium AM 0400 Phosphorous AM 0400 09/13/17 04:00 Magnesium AM 0400 Phosphorous AM 0400 Date of Encounter: 09/11/17 Time of Encounter: 08:30 - Discharge Diagnosis (1) Small bowel obstruction Priority: Primary Status: Resolved General Surgery Exam Initial Vital Signs Temp Pulse Resp BP Pulse Ox 98.3 F 83 16 97/58 100 09/05/17 00:52 09/05/17 00:52 09/05/17 00:52 09/05/17 00:52 09/05/17 00:52 - General physical appearance well developed, well nourished, no distress - Eyes normal ocular movement - ENT normal mucosa, no congestion - Neck no lymphadectomy - Respiratory normal expansion, normal respiratory effort, clear to auscultation - Cardiovascular Cardiovascular exam: Present: RRR, no murmurs/rubs/gallops. Absent: JVD - Abdomen Abdomen general surgery: Present: soft, non tender - Incision Incision: Present: clean and dry, intact (midline, no erythema, hematoma, or discharge) - Integumentary Integumentary general surgery: Present: warm and dry, no abnormal pigmentation - Neurologic Present: normal coordination, normal sensation - Musculoskeletal Present: normal posture - Psychiatric Psychiatric general surgery: Present: speech is normal, memory intact - Hospital Course Hospital course: Ms. Paez is a 31 year old female who has been symptomatic for almost a year with intermittent crampy abdominal pain associated with occasional nausea and vomiting. She was admitted to the hospital one occasion to rule out gastroenteritis. She presented 09/05 to the emergency room with nausea and vomiting and crampy abdominal pain. CAT scan demonstrates distal small bowel obstruction. 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 Path report suggested patient may have had "burned out" Crohn's disease--now resected. Monitoring for anastomoses leakage for the last few days has yielded no signs of tachycardia, hypotension, peritoneal signs, nausea, or vomiting. Patient tolerated procedure well with flatus POD4 tolerating a regular diet. Periodic hypokalemia in setting of NG drainage was corrected with K+ repletion. She had a fever 100.7 which resolved for close to 24 hours. We plan to conditionally discharge patient today with follow-up with Dr. Morales on 09/24. - Time Spent with Patient Total time spent providing and/or coordinating discharge services: - Discharge Medications Home Medications: Docusate [Colace] 100 mg PO BID PRN #30 capsule 09/11/17 [Rx] Ibuprofen [Motrin] 800 mg PO Q8HR PRN #42 tablet 09/11/17 [Rx] Ondansetron HCl [Zofran] 4 mg PO Q8HR PRN #15 tab 09/11/17 [Rx] OxyCODONE/APAP 5/325 [Percocet 5/325 MG] 1 each PO Q6HR PRN 7 Days #28 tablet [Rx] Allergies/Adverse Reactions: 3 Allergy/AdvReac Type Severity Reaction Status Date / Time No Known Allergies Allergy Verified 09/05/17 11:38 Date of admission: 09/05/17 00:36 Primary care physician: Roshan Tanner CNP Consults: 09/08/17 14:15 Consult to Invasive Line Access Team [CONS] Routine Reason for Consult: Iv infiltrated and unable to start new IV d/t limited vascular access Line Type: EPIV Discharging clinician: Farhat Remy Labs on day of discharge: Labs from last 24 hours 09/11/17 09/11/17 09/10/17 06:51 06:51 18:10 WBC 6.7 RBC 3.27 L Hgb 9.3 L Hct 27.2 L MCV 83.2 MCH 28.4 MCHC 34.2 RDW 12.9 Plt Count 240 MPV 9.9 Immature Gran % 2.2 Seg Neutrophils % 72.2 Lymphocytes % 12.2 Monocytes % 11.5 Eosinophils % 1.5 Basophils % 0.4 Neutrophils # 4.8 Lymphocytes # 0.8 Monocytes # 0.8 Eosinophils # 0.1 Basophils # 0.0 Sodium 138 Potassium 2.8 L Chloride 101 Carbon Dioxide 28 BUN 4 L Creatinine 0.36 L Est GFR ( Amer) > 60 Est GFR (Non-Af Amer) > 60 BUN/Creatinine Ratio 11 Glucose 106 H Calculated Osmolality 283 Lactic Acid 1.9 Calcium 8.5 L Phosphorus 2.9 Magnesium 1.7 Urine Color Urine Clarity Urine pH Ur Specific [place] Urine Protein Urine Glucose (UA) Urine Ketones Urine Blood Urine Nitrite Urine Bilirubin Urine Urobilinogen Ur Leukocyte Esterase Urine Microscopic RBC Urine Microscopic WBC Ur Squamous Epith Cells Urine Bacteria Hyaline Casts Ur Culture Indicated? 09/10/17 09/10/17 09/10/17 18:10 14:37 13:59 WBC RBC Hgb Hct MCV MCH MCHC RDW Plt Count MPV Immature Gran % Seg Neutrophils % Lymphocytes % Monocytes % Eosinophils % Basophils % Neutrophils # Lymphocytes # Monocytes # Eosinophils # Basophils # Sodium Potassium 3.1 L Chloride Carbon Dioxide BUN Creatinine Est GFR ( Amer) Est GFR (Non-Af Amer) BUN/Creatinine Ratio Glucose Calculated Osmolality Lactic Acid 2.8 H Calcium Phosphorus Magnesium Urine Color Yellow Urine Clarity Clear Urine pH 6.5 Ur Specific [place] 1.015 Urine Protein Negative Urine Glucose (UA) Normal Urine Ketones Trace H Urine Blood Small H Urine Nitrite Negative Urine Bilirubin Negative Urine Urobilinogen Normal Ur Leukocyte Esterase Negative Urine Microscopic RBC 5-15 H Urine Microscopic WBC 0-3 Ur Squamous Epith Cells Few Urine Bacteria None Seen Hyaline Casts None Seen Ur Culture Indicated? NO - Impressions ITS Impressions Chest/Abdomen X-ray 09/05/17 06:00 IMPRESSION: Improved appearance of the abdomen. No definite small bowel obstruction. Slight to mild ileus appears to remain. D/ / Kendrick Villareal MD / Kendrick Villareal MD Interpreting Provider: Kendrick Villareal MD Chest X-Ray 09/10/17 13:48 IMPRESSION: Unremarkable chest. D/ / Abby Simpson MD / Abby Simpson MD Interpreting Provider: Abby Simpson MD - Patient Status Disposition: Home, Self-Care Condition: Good Functional capacity at discharge: independent ambulation Overall status at discharge: patient is progressing back to baseline - Discharge Instructions Follow Up With: Roshan Tanner CNP [Primary Care Provider] - Macho Morales MD [Partnered Physician] - 09/24/17 9:05 am Additional Instructions: General Surgical Discharge Instructions 1. No pushing, pulling, or lifting greater than 15 lbs for 2-4 weeks (depending upon procedure). 2. You may shower beginning today, but no tub baths, soaking, or swimming for 2 weeks. 3. You may resume driving when you are off narcotics and are safe to react in a car. 4. Take ibuprofen every 8 hours for discomfort. If this does not relieve discomfort, you may take the as needed Percocet. Take narcotics as directed. Do not take more narcotics then directed and do not share your narcotics with any other person. Do not drink alcohol while on narcotics. 5. Take stool softeners (Colace) or a water based laxative (Miralax) while taking narcotics. You may hold for loose stools. 6. Report any fevers greater than 100.5F, increase abdominal discomfort, drainage that looks like pus, increased redness or pain at the surgical site, or any vomiting. 7. Report any pain in the calves, shortness of breath, or rapid heartbeat. 8. Follow-up in the office as directed. 9. If you were prescribed antibiotics, do not stop them without talking to your provider. - Diet and Activity Activity: resume usual activities as tolerated Diet: regular diet
== END 2017-09-11 14:45 | disposition home or self-care (01) | DRG 231 ==
LOC: 3ANU 09-05 00:36
PROVIDERS: ADMIT Surgery; ATTEND Surgery